=== PATIENT | female | born 1960 | race Caucasian/White ===

== ENCOUNTER 2017-04-26 13:45 | Emergency (ER) | payer OTHER, SELFPAY ==
--- NOTE | 2017-04-26 15:34 | ED PDOC ---
HPI: Female Pain Time Seen by Provider: 04/26/17 14:49 Chief Complaint (Nursing): Female Genitourinary Chief Complaint (Provider): Vaginal bleeding History Per: Patient Additional Complaint(s): 56 yo female, no PMH, PSH of partial hysterectomy, c/o vaginal bleeding on and off since yesterday with suprapubic pain. Past Medical History Vital Signs: Last Vital Signs Temp 98.2 F 04/26/17 14:29 Pulse 71 04/26/17 14:29 Resp 16 04/26/17 14:29 BP 157/76 H 04/26/17 14:29 Pulse Ox 100 04/26/17 14:29 - Medical History PMH: Denies: Chronic Kidney Disease - Surgical History Surgical History: Appendectomy Other surgeries: partial hysterectomy - Family History Family History: States: Unknown Family Hx - Immunization History Hx Tetanus Toxoid Vaccination: Yes (2 years ago) - Home Medications Home Medications: Ambulatory Orders Medication Instructions Recorded Sulfamethoxazole/Trimethopri 1 tab PO BID #14 tab 10/04/14 [Bactrim Ds 800 mg-160 mg] oxyCODONE/Acetaminophen [Percocet 1 tab PO Q6H PRN #15 tab 10/04/14 5/325 mg Tab] Phenazopyridine HCl [Pyridium] 200 mg PO TID #6 tablet 11/08/15 Sulfamethoxazole/Trimethoprim 1 tab PO BID #14 tab 11/08/15 [Bactrim DS 800 mg-160 mg] Meloxicam [Mobic] 7.5 mg PO DAILY PRN #30 tab 03/27/16 Methocarbamol [Robaxin] 500 mg PO Q8 PRN #30 tab 03/27/16 Sulfamethoxazole/Trimethoprim 1 tab PO BID 5 Days tab 04/26/17 [Bactrim DS 800 mg-160 mg] - Allergies Allergies/Adverse Reactions: Allergies Allergy/AdvReac Type Severity Reaction Status Date / Time No Known Allergies Allergy Verified 04/26/17 14:29 - Laboratory Results Result Diagrams: 04/26/17 15:40 04/26/17 15:40 - ECG O2 Sat by Pulse Oximetry: 100 Medical Decision Making Medical Decision Making: Pt declined IV Rocephin, prefers PO Disposition - Clinical Impression Clinical Impression: Vaginal bleeding, abnormal - Disposition [facility] Condition: STABLE Prescriptions: Sulfamethoxazole/Trimethoprim [Bactrim DS 800 mg-160 mg] 1 tab PO BID 5 Days tab Instructions: Dysfunctional Uterine Bleeding (ED) Forms: [employer] (Norwegian)
[2017-04-26 15:52] LABS: BASO # 0.1 K/uL (0.0-0.2); BASO % 0.8 % (0.0-2.0); EOS # 0.2 K/uL (0.0-0.7); EOS % 2.9 % (0.0-4.0); HEMOGLOBIN 12.4 g/dL (12.0-16.0); LYMPH # 1.1 K/uL (1.0-4.3); LYMPH % 17.3 % (20.0-40.0); MEAN CELL VOLUME 95.6 fl (81.0-99.0); MEAN CORPUSCULAR HEMOGLOBIN 31.6 pg (27.0-31.0); MEAN CORPUSCULAR HGB CONC 33.1 g/dL (33.0-37.0); MEAN PLATELET VOLUME 9.9 fl (7.2-11.7); MONO # 0.5 K/uL (0.0-0.8); MONO % 8.1 % (0.0-10.0); NEUT # 4.7 K/uL (1.8-7.0); NEUT % 70.9 % (50.0-75.0); RBC 3.93 Mil/uL (3.80-5.20); RED CELL DISTRIBUTION WIDTH 13.3 % (11.5-14.5); WHITE BLOOD COUNT 6.6 K/uL (4.8-10.8)
[2017-04-26 16:02] LABS: ALB/GLOB RATIO 1.5 (1.0-2.1); ALBUMIN 4.1 g/dL (3.5-5.0); ALT/SGPT 27 U/L (9-52); AST/SGOT 26 U/L (14-36); BLOOD UREA NITROGEN 21 mg/dl (7-17); CALCIUM 8.8 mg/dL (8.4-10.2); GFR AFRICAN-AMERICAN > 60; GFR NON-AFRICAN AMERICAN > 60
[2017-04-26 16:10] LABS: SQUAMOUS EPITHIAL 1 /hpf (0-5); URINE BACTERIA RARE (<OCC); URINE BILIRUBIN NEGATIVE (NEGATIVE); URINE BLOOD MODERATE (NEGATIVE); URINE CLARITY SLIGHTY-CLOUDY (Clear); URINE COLOR AMBER (YELLOW); URINE GLUCOSE (UA) NEG (Normal); URINE LEUKOCYTE ESTERASE NEG Leu/uL (Negative); URINE NITRATE POSITIVE (NEGATIVE); URINE PROTEIN NEGATIVE (NEGATIVE)
--- NOTE | 2017-04-26 17:18 | US ---
Indication: Partial hysterectomy, vaginal bleeding Comparison: None available. Technique: Real-time transabdominal pelvic ultrasound was performed. In addition a transvaginal pelvic ultrasound was necessary to better depict pelvic anatomy. Findings: Limited study. The patient is status post partial hysterectomy. Bilateral ovaries were not identified. In the region of the presumed cervical stump/vagina, there is a heterogeneous hyperechoic prominence measuring approximately 3.2 x 2.5 x 2.6 cm which demonstrates increased vascularity. Small complex fluid identified. Impression: Limited study. Status post partial hysterectomy. Bilateral ovaries are not identified. In the region of the presumed cervical stump/vagina, there is a heterogeneous hyperechoic prominence measuring approximately 3.2 x 2.5 x 2.6 cm which demonstrates increased vascularity. Malignant neoplasm must be excluded. Recommend correlation with gynecologic evaluation and pelvic exam/Pap smear. Small complex fluid identified.
[2017-04-26] MEDS ORDERED: Tmp-Smz 800 mg-160 mg DS Tab ONE (18:47)
[2017-04-26] MEDS: Tmp-Smz 800 mg-160 mg DS Tab PO STA ×2 (18:48→18:56)
[2017-04-26 19:11] VITALS: BP 128/78; PULSE 78; RESP 18; TEMP 97
[2017-04-26 20:26] VITALS: O2SAT 100
== END 2017-04-26 19:26 | disposition home or self-care (01) ==
LOC: H.ER 13:45
DX: N93.9 Abnormal uterine and vaginal bleeding, unspecified (principal)
CPT/HCPCS: 76830; 80053; 81003; 85025; 96374; 99282; J1885

== ENCOUNTER 2017-09-07 17:23 | Emergency (ER) | payer SELFPAY ==
[2017-09-07] MEDS ORDERED: Sodium Chloride 0.9% 1,000 ML IV STA (17:52)
--- NOTE | 2017-09-07 18:13 | ED PDOC ---
HPI: Fever Fever Onset Was: 09/04/17 Additional Comments: 56-YEAR-OLD female, with a past medical history of vaginal cancer, presents to ED complaining of fever for 4 days assocaited with generalized weakness and loss of appetite. Tmax today at 104. Denies any other infectious symptoms. Reports taking tylenol for fever with relief, but to due to high temperature, pt came here to be evaluated. Pt recently undergone 5 weeks of chemotherapy and radiation for vaginal cancer. Last treamtent was 2 weeks ago. PMD: Clinic. Oncologist: Dr. Gayle ([facility]) Against Medical Advice - AMA Patient Left Against Medical Advice: The patient declines admission to the hospital and wishes to leave the Emergency Department. This action is against my medical advice. This decision was made with informed refusal. The patient was told that admission to the hospital is necessary. Explanation of the reasons why were discussed. The risks of leaving were explained to the patient and include, but are not limited to, worsening of known or currently unknown conditions, permanent disability and from undiagnosed or untreated conditions. The patient has the capacity to make this informed decision and understands my explanation of the current medical problem and risks of leaving. The patient voluntarily accepts these risks and signed an AMA form documenting our conversation. The patient was given the opportunity to ask questions and reconsider. The patient was encouraged to return to the Emergency Department at any time for further care. Past Medical History Reviewed: Historical Data, Nursing Documentation, Vital Signs Vital Signs: Last Vital Signs Temp 98.1 F 09/07/17 19:41 Pulse 75 09/07/17 19:41 Resp 16 09/07/17 19:41 BP 105/50 L 09/07/17 19:41 Pulse Ox 96 09/07/17 19:41 - Medical History PMH: Malignancy (vaginal) Other PMH: vaginal cancer - Surgical History Surgical History: Appendectomy Other surgeries: hysterectomy, portal catheter right chest - Family History Family History: States: Unknown Family Hx - Social History Current smoker - smoking cessation education provided: Yes Alcohol: Occasional - Immunization History Hx Tetanus Toxoid Vaccination: Yes (2 years ago) - Home Medications Home Medications: Ambulatory Orders Medication Instructions Recorded Sulfamethoxazole/Trimethopri 1 tab PO BID #14 tab 10/04/14 [Bactrim Ds 800 mg-160 mg] oxyCODONE/Acetaminophen [Percocet 1 tab PO Q6H PRN #15 tab 10/04/14 5/325 mg Tab] Phenazopyridine HCl [Pyridium] 200 mg PO TID #6 tablet 11/08/15 Sulfamethoxazole/Trimethoprim 1 tab PO BID #14 tab 11/08/15 [Bactrim DS 800 mg-160 mg] Meloxicam [Mobic] 7.5 mg PO DAILY PRN #30 tab 03/27/16 Methocarbamol [Robaxin] 500 mg PO Q8 PRN #30 tab 03/27/16 Sulfamethoxazole/Trimethoprim 1 tab PO BID 5 Days tab 04/26/17 [Bactrim DS 800 mg-160 mg] - Allergies Allergies/Adverse Reactions: Allergies Allergy/AdvReac Type Severity Reaction Status Date / Time No Known Allergies Allergy Verified 09/07/17 17:30 Review of Systems ROS Statement: Except As Marked, All Systems Reviewed And Found Negative (and as per HPI) Constitutional: Positive for: Fever, Chills, Weakness Cardiovascular: Positive for: Light Headedness Genitourinary Female: Negative for: Dysuria, Hematuria, Vaginal Discharge, Vaginal Bleeding, Pelvic Pain Physical Exam - Reviewed Nursing Documentation Reviewed: Yes Vital Signs Reviewed: Yes - Physical Exam Appears: Positive for: No Acute Distress. Negative for: Well ((+): tired appearing) Head Exam: Positive for: ATRAUMATIC, NORMOCEPHALIC Skin: Positive for: Warm, Dry, Pallor (Mild) Eye Exam: Positive for: EOMI, PERRL ENT: Positive for: Pharynx Is (Clear), Other (tachy mucous membranes) Neck: Positive for: Painless ROM, Supple Cardiovascular/Chest: Positive for: Regular Rate, Rhythm, Chest Non Tender. Negative for: Murmur Respiratory: Positive for: Normal Breath Sounds. Negative for: Wheezing, Respiratory Distress Gastrointestinal/Abdominal: Positive for: Bowel Sounds, Soft. Negative for: Tenderness, Mass, Distended, Guarding Back: Positive for: Normal Inspection. Negative for: Decreased ROM Extremity: Positive for: Normal ROM. Negative for: Deformity Lymphatic: Negative for: Adenopathy Neurologic/Psych: Positive for: Alert. Negative for: Motor/Sensory Deficits - Laboratory Results Result Diagrams: 09/07/17 18:00 09/07/17 18:00 - ECG O2 Sat by Pulse Oximetry: 99 (RA) Pulse Ox Interpretation: Normal Medical Decision Making Medical Decision Making: Impression(s): Febrile illness with recent cancer therapy Differentials include, not limited to: viral illness, sepsis, dehydration, neutropenic fever, UTI, bacteremia, pneumonia Plan: - Venous Blood Gas Serum - cmp - Lipase - magnesium - phosphorous - ED Urine Dipstick - cbc - partial thromboplastin time - prothrombin time - CXR - Blood Culture - Urine Culture - Sodium Chloride 0.9% 1,000 ml IV 1,000 mls/hr - Infectious mononucleosis - Rapid Strep Group A Antigen - UA - EKG - Troponin I - Throat Culture Time: 19:48 - Labs demonstrate marked anemia and UTI. Given systemic symptoms, findings c/w pyelonephritis. - Rocephin 1 gm Sodium Chloride 0.9% 100 ml IV STAT - Crossmatch [Packed Cells Leukoreduced] - Discussed with patient findings and plan of care, including admission. Pt declines admission at this time. DW pt risks/benefits. She will leave A after IV rocephin and transfusion. 230 Transfusion not yet started by patient wants to leave now. AMA signed. Reports that she will return tomorrow at around 10am. Scribe Attestation: Documented by Alton Iverson, acting as a scribe for Margarita Troy MD. Provider Scribe Attestation: All medical record entries made by the Scribe were at my direction and personally dictated by me. I have reviewed the chart and agree that the record accurately reflects my personal performance of the history, physical exam, medical decision making, and the department course for this patient. I have also personally directed, reviewed, and agree with the discharge instructions and disposition. Disposition - Clinical Impression Clinical Impression: Anemia, Pyelonephritis Counseled Patient/Family Regarding: Studies Performed, Diagnosis - Disposition Disposition Time: 21:00 Condition: Additional Instructions: RETURN TO HOSPITAL IMMEDIATELY FOR FURTHER MANAGEMENT Instructions: Leaving Against Medical Advice
[2017-09-07 18:38] LABS: VENOUS BLOOD GAS BASE EXCESS 3.7 mmol/L (0.0-2.0); VENOUS BLOOD GAS PCO2 38 mmHg (40-60); VENOUS BLOOD GAS PO2 28 mm/Hg (30-55); VENOUS BLOOD PH 7.47 (7.32-7.43)
[2017-09-07 19:21] LABS: BASO % 0.4 % (0.0-2.0); EOS % 0.1 % (0.0-4.0); HEMOGLOBIN 7.2 g/dL (12.0-16.0); LYMPH # 0.6 K/uL (1.0-4.3); LYMPH % 7.1 % (20.0-40.0); MEAN CELL VOLUME 96.9 fl (81.0-99.0); MEAN CORPUSCULAR HEMOGLOBIN 32.8 pg (27.0-31.0); MEAN CORPUSCULAR HGB CONC 33.9 g/dL (33.0-37.0); MEAN PLATELET VOLUME 8.2 fl (7.2-11.7); MONO # 1.1 K/uL (0.0-0.8); MONO % 12.5 % (0.0-10.0); NEUT # 6.9 K/uL (1.8-7.0); NEUT % 79.9 % (50.0-75.0); PLATELET COUNT 258 K/uL (130-400); RBC 2.19 Mil/uL (3.80-5.20); RED CELL DISTRIBUTION WIDTH 14.6 % (11.5-14.5); WHITE BLOOD COUNT 8.7 K/uL (4.8-10.8)
[2017-09-07 19:29] LABS: URINE BACTERIA OCC (<OCC); URINE BILIRUBIN NEGATIVE (NEGATIVE); URINE BLOOD NEGATIVE (NEGATIVE); URINE CLARITY TURBID (Clear); URINE COLOR YELLOW (YELLOW); URINE GLUCOSE (UA) 50 mg/dL (Normal); URINE HYALINE CAST >20 /hpf (0-2); URINE LEUKOCYTE ESTERASE LARGE Leu/uL (Negative); URINE PROTEIN 100 mg/dL (NEGATIVE); URINE UROBILINOGEN 0.2-1.0 mg/dL (0.2-1.0); WBC CLUMPS MANY /hpf
[2017-09-07 19:31] LABS: ALB/GLOB RATIO 0.9 (1.0-2.1); ALBUMIN 3.4 g/dL (3.5-5.0); ALT/SGPT 41 U/L (9-52); AST/SGOT 29 U/L (14-36); BLOOD UREA NITROGEN 11 mg/dl (7-17); CALCIUM 7.9 mg/dL (8.4-10.2); GFR AFRICAN-AMERICAN > 60; GFR NON-AFRICAN AMERICAN > 60; LIPASE 69 U/L (23-300)
[2017-09-07 19:43] LABS: INR 1.1 (0.9-1.2); PARTIAL THROMBOPLASTIN TIME 28.8 Seconds (25.6-37.1); PROTHROMBIN TIME 12.6 Seconds (9.8-13.1)
[2017-09-07 19:50] VITALS: TEMP 98.1
[2017-09-07 21:15] LABS: BASOPHIL 1 % (0-2); LYMPHOCYTE 8 % (20-50); MONOCYTE 12 % (0-10); NEUTROPHIL 79 % (42-75); PLATELET ESTIMATE NORMAL (NORMAL); TOTAL CELLS COUNTED 100
[2017-09-07 21:16] LABS: HYPOCHROMIC SLIGHT
[2017-09-07 21:38] VITALS: O2SAT 99
[2017-09-07] MEDS ORDERED: cefTRIAXone (Rocephin) 1 gm Inj ONE (21:44)
[2017-09-08 01:22] VITALS: BP 107/46; PULSE 78; RESP 17
--- NOTE | 2017-09-08 08:39 | RAD ---
HISTORY: fever COMPARISON: Chest radiograph dated 06/16/2012. TECHNIQUE: Chest PA and lateral FINDINGS: LUNGS: No active pulmonary disease. PLEURA: No significant pleural effusion identified. No pneumothorax apparent. CARDIOVASCULAR: Atherosclerotic aortic calcifications. Cardiomediastinal silhouette within normal. OSSEOUS STRUCTURES: Unchanged. VISUALIZED UPPER ABDOMEN: Normal. OTHER FINDINGS: Right internal jugular access chest port with catheter tip in the SVC. IMPRESSION: No active disease.
--- NOTE | 2017-09-09 12:15 | CARD ---
APPROVED REPORT EKG Measurement Heart [id number] <Conclusion> Normal sinus rhythm Possible Left atrial enlargement Borderline ECG
== END 2017-09-07 23:29 | disposition left against medical advice (07) ==
LOC: H.ER 17:23
DX: N12 Tubulo-interstitial nephritis, not specified as acute or chronic (principal); D64.9 Anemia, unspecified; F17.200 Nicotine dependence, unspecified, uncomplicated; Z90.710 Acquired absence of both cervix and uterus; Z85.89 Personal history of malignant neoplasm of other organs and systems; Z51.11 Encounter for antineoplastic chemotherapy
CPT/HCPCS: 71046; 80053; 81003; 82803; 83690; 83735; 84100; 84484; 85025; 85610; 85730; 86308; 86850; 86900; 86920; 86921; 86922; 87040; 87070; 87086; 87430; 93005; 96360; 99285; J0696; J7030

== ENCOUNTER 2017-09-08 10:28 | Inpatient (IN) | payer MEDICAID, SELFPAY ==
[2017-09-08 10:33] VITALS: BMI 18.2
[2017-09-08] MEDS ORDERED: Sodium Chloride 0.9% 1,000 ML IV STA (11:03)
--- NOTE | 2017-09-08 11:07 | ED PDOC ---
Syncope/Near Syncope/Dizziness Time Seen by Provider: 09/08/17 10:51 Chief Complaint (Nursing): Weakness/Neurological Deficit History Per: Patient Onset/Duration Of Symptoms: Days (2) Current Symptoms Are (Timing): Still Present Activity At Onset Of Symptoms: Walking Seizure Or Post-ictal Symptoms: None Fall Associated With With Symptoms: No Severity: Moderate Additional Complaint(s): Generalized waekness assoc with fever to 104 x 2 days. Pt is s/p chemo and radiation for vaginal Ca, last dose 2 weeks ago. Seen in ED yesterday and started on IV Rocephin. Could not wait for transfusion due to need to take care of pets at home and signed AMA last night. Returns today for transfusion and tx of urinary tract infection. Past Medical History Vital Signs: Last Vital Signs Temp 98.8 F 09/08/17 10:33 Pulse 84 09/08/17 10:33 Resp 16 09/08/17 10:33 BP 117/68 09/08/17 10:33 Pulse Ox 98 09/08/17 10:53 - Medical History PMH: Malignancy (vaginal) Denies: Chronic Kidney Disease - Surgical History Surgical History: Appendectomy - Family History Family History: States: Unknown Family Hx - Immunization History Hx Tetanus Toxoid Vaccination: Yes (2 years ago) - Home Medications Home Medications: Ambulatory Orders Medication Instructions Recorded Sulfamethoxazole/Trimethopri 1 tab PO BID #14 tab 10/04/14 [Bactrim Ds 800 mg-160 mg] oxyCODONE/Acetaminophen [Percocet 1 tab PO Q6H PRN #15 tab 10/04/14 5/325 mg Tab] Phenazopyridine HCl [Pyridium] 200 mg PO TID #6 tablet 11/08/15 Sulfamethoxazole/Trimethoprim 1 tab PO BID #14 tab 11/08/15 [Bactrim DS 800 mg-160 mg] Meloxicam [Mobic] 7.5 mg PO DAILY PRN #30 tab 03/27/16 Methocarbamol [Robaxin] 500 mg PO Q8 PRN #30 tab 03/27/16 Sulfamethoxazole/Trimethoprim 1 tab PO BID 5 Days tab 04/26/17 [Bactrim DS 800 mg-160 mg] - Allergies Allergies/Adverse Reactions: Allergies Allergy/AdvReac Type Severity Reaction Status Date / Time No Known Allergies Allergy Verified 09/08/17 10:53 Review of Systems ROS Statement: Except As Marked, All Systems Reviewed And Found Negative Constitutional: Positive for: Fever, Weakness Physical Exam - Reviewed Nursing Documentation Reviewed: Yes Vital Signs Reviewed: Yes - Physical Exam Appears: Positive for: Non-toxic, No Acute Distress Head Exam: Positive for: ATRAUMATIC, NORMAL INSPECTION, NORMOCEPHALIC Skin: Positive for: Normal Color, Warm, DRY Eye Exam: Positive for: EOMI, Normal appearance, PERRL ENT: Positive for: Normal ENT Inspection Neck: Positive for: Normal, Painless ROM Cardiovascular/Chest: Positive for: Regular Rate, Rhythm Respiratory: Positive for: CNT, Normal Breath Sounds Gastrointestinal/Abdominal: Positive for: Soft. Negative for: Tenderness Back: Positive for: Normal Inspection. Negative for: L CVA Tenderness, R CVA Tenderness Extremity: Positive for: Normal ROM Neurologic/Psych: Positive for: Alert, Oriented - ECG O2 Sat by Pulse Oximetry: 98 Disposition - Clinical Impression Clinical Impression: Anemia, Urinary tract infection - Patient ED Disposition Is Patient to be Admitted: Yes - Disposition Disposition Time: 11:14 Condition: FAIR Forms: [facility] (Maltese) - Pt Status Changed To: Hospital Disposition Of: Inpatient - Admit Certification Admit to Inpatient:: After my assessment, the patient will require hospitalization for at least two midnights. This is because of the severity of symptoms shown, intensity of services needed, and/or the medical risk in this patient being treated as an outpatient. - POA Present On Arrival: None
[2017-09-08 11:57] LABS: BASO % 0.2 % (0.0-2.0); EOS % 0.1 % (0.0-4.0); HEMOGLOBIN 7.6 g/dL (12.0-16.0); LYMPH # 0.5 K/uL (1.0-4.3); LYMPH % 7.1 % (20.0-40.0); MEAN CELL VOLUME 95.4 fl (81.0-99.0); MEAN CORPUSCULAR HEMOGLOBIN 32.4 pg (27.0-31.0); MONO # 0.8 K/uL (0.0-0.8); MONO % 12.5 % (0.0-10.0); NEUT # 5.2 K/uL (1.8-7.0); NEUT % 80.1 % (50.0-75.0); RBC 2.35 Mil/uL (3.80-5.20); RED CELL DISTRIBUTION WIDTH 14.6 % (11.5-14.5); WHITE BLOOD COUNT 6.5 K/uL (4.8-10.8)
[2017-09-08 12:08] LABS: VENOUS BLOOD GAS BASE EXCESS 3.2 mmol/L (0.0-2.0); VENOUS BLOOD GAS PCO2 35 mmHg (40-60); VENOUS BLOOD GAS PO2 67 mm/Hg (30-55); VENOUS BLOOD PH 7.49 (7.32-7.43)
[2017-09-08 12:32] LABS: ALB/GLOB RATIO 0.8 (1.0-2.1); ALBUMIN 3.2 g/dL (3.5-5.0); ALT/SGPT 45 U/L (9-52); AST/SGOT 26 U/L (14-36); BLOOD UREA NITROGEN 13 mg/dl (7-17); CALCIUM 8.2 mg/dL (8.4-10.2); GFR AFRICAN-AMERICAN > 60; GFR NON-AFRICAN AMERICAN > 60
--- NOTE | 2017-09-08 15:41 | CP.PCM.HP ---
History of Present Illness - History of Present Illness History of Present Illness: 56 year old female with history of VAIN III currently underoging chemo/ radiation presented with complaints fever, fatigue, dysuria for past 1 week. She received her last treatment 2 weeks ago. Fatigue and fevers prompted ED visit yesterday but she was unable to stay so she signed out AMA. She returns today for blood transfusion, does not want to stay overnight, but says she will just leave in the morning. Heme/Onc: Dr. Gayle at [facility]. She has been undergoing treatment since June 2017. Originally diagnosed in April 2017. For all previous treatments she was able to work, and denies having any side effects from the treatment. PMD: none, last seen at [facility] in May 2017. 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 Medications: chemo rx Allergies: NKDA Present on Admission - Present on Admission Any Indicators Present on Admission: No Review of Systems - Review of Systems All systems: reviewed and no additional remarkable complaints except - Constitutional Constitutional: Chills, Fatigue, Fever, Weakness - Cardiovascular Cardiovascular: Dyspnea (not currently, but did have within past week). absent : Chest Pain, Chest Pain at Rest, Diaphoresis, Lightheadedness, Palpitations - Respiratory Respiratory: absent: Cough - Gastrointestinal Gastrointestinal: Diarrhea (for past month). absent: Abdominal Pain, Change in Bowel Habits, Hematochezia, Melena - Genitourinary Genitourinary: Dysuria. absent: Difficulty Urinating, Flank Pain, Hematuria - Neurological Neurological: absent: Confusion, Dizziness, Syncope Past Patient History - Past Social History Smoking Status: Light Smoker < 10 Cigarettes Daily - CARDIAC Hx Cardiac Disorders: No - PULMONARY Hx Respiratory Disorders: No - NEUROLOGICAL Hx Neurological Disorder: No - HEENT Hx HEENT Problems: No - RENAL Hx Chronic Kidney Disease: No - ENDOCRINE/METABOLIC Hx Endocrine Disorders: No - HEMATOLOGICAL/ONCOLOGICAL Hx Blood Disorders: No - PSYCHIATRIC Hx Substance Use: No - SURGICAL HISTORY Hx Appendectomy: Yes - ANESTHESIA Hx Anesthesia: Yes Meds Allergies/Adverse Reactions: Allergies Allergy/AdvReac Type Severity Reaction Status Date / Time No Known Allergies Allergy Verified 09/08/17 10:53 Physical Exam - Constitutional Appears: No Acute Distress, Other (tired) - Head Exam Head Exam: ATRAUMATIC, NORMAL INSPECTION, NORMOCEPHALIC - Eye Exam Additional comments: conjunctival pallor, 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 absent: Chest Wall Tenderness, Rhonchi, Wheezes, Respiratory Distress Additional comments: PORT on right chest, blood transfusion infusing - Cardiovascular Exam Cardiovascular Exam: REGULAR RHYTHM, RRR. absent: Bradycardia, Tachycardia, Diastolic murmur, Systolic Murmur - GI/Abdominal Exam GI & Abdominal Exam: Soft. absent: Diminished Bowel Sounds, Distended, Tenderness - Extremities Exam Extremities exam: Positive for: normal inspection. Negative for: calf tenderness - Back Exam Back exam: absent: CVA tenderness (L), CVA tenderness (R) - Neurological Exam Neurological exam: Alert, CN II-XII Intact - Skin Skin Exam: Dry, Pallor Results - Vital Signs Recent Vital Signs: Last Vital Signs Temp 98.2 F 09/08/17 15:09 Pulse 80 09/08/17 15:09 Resp 18 09/08/17 15:09 BP 127/72 09/08/17 15:09 Pulse Ox 99 09/08/17 15:09 - Labs Result Diagrams: 09/08/17 11:40 09/08/17 12:10 Labs: Laboratory Results - last 24 hr 09/08/17 09/08/17 09/08/17 11:03 11:40 12:00 WBC 6.5 RBC 2.35 L Hgb 7.6 L Hct 22.5 L MCV 95.4 MCH 32.4 H MCHC 34.0 RDW 14.6 H Plt Count 254 MPV 8.0 Neut % (Auto) 80.1 H Lymph % (Auto) 7.1 L [place] % (Auto) 12.5 H Eos % (Auto) 0.1 Baso % (Auto) 0.2 Neut # (Auto) 5.2 Lymph # (Auto) 0.5 L [place] # (Auto) 0.8 Eos # (Auto) 0.0 Baso # (Auto) 0.0 pO2 67 H VBG pH 7.49 H VBG pCO2 35 L VBG HCO3 27.4 VBG Total CO2 27.8 VBG O2 Sat (Calc) 97.8 H VBG Base Excess 3.2 H VBG Potassium 4.0 Sodium 135.0 Chloride 105.0 Glucose 124 H Lactate 0.8 FiO2 21.0 Potassium Carbon Dioxide Anion Gap BUN Creatinine Est GFR ( Amer) Est GFR (Non-Af Amer) Random Glucose Calcium Total Bilirubin AST ALT Alkaline Phosphatase Total Protein Albumin Globulin Albumin/Globulin Ratio Venous Blood Potassium 4.0 Blood Type A POSITIVE Antibody Screen Negative Crossmatch See Detail BBK History Checked Patient has bt 09/08/17 12:10 WBC RBC Hgb Hct MCV MCH MCHC RDW Plt Count MPV Neut % (Auto) Lymph % (Auto) [place] % (Auto) Eos % (Auto) Baso % (Auto) Neut # (Auto) Lymph # (Auto) [place] # (Auto) Eos # (Auto) Baso # (Auto) pO2 VBG pH VBG pCO2 VBG HCO3 VBG Total CO2 VBG O2 Sat (Calc) VBG Base Excess VBG Potassium Sodium 136 Chloride 102 Glucose Lactate FiO2 Potassium 4.1 Carbon Dioxide 23 Anion Gap 15 BUN 13 Creatinine 0.8 Est GFR ( Amer) > 60 Est GFR (Non-Af Amer) > 60 Random Glucose 121 H Calcium 8.2 L Total Bilirubin 0.4 AST 26 ALT 45 Alkaline Phosphatase 73 Total Protein 7.1 Albumin 3.2 L Globulin 3.8 Albumin/Globulin Ratio 0.8 L Venous Blood Potassium Blood Type Antibody Screen Crossmatch BBK History Checked Assessment & Plan - Assessment and Plan (Free Text) Assessment: 56 year old female with VAIN III currently undergoing rx with chemo/radiation admitted for Anemia and UTI. Patient is hemodynamically stable, afebrile. Given Rocephin for UTI. Blood and urine cx done in ED Anemia -Transfuse 2 units, repeat cbc -heme/onc consult. pt sees Dr. Gayle at [facility] -FOBT UTI -UA -f/u urine culture -Given rocephin in ED -Start Levaquin 750 mg in AM Prophylaxis DVT: SCDs for now, pt with anemia unclear if 2/2 to chemotherapy or possibly secondary to microscopic blood loss in stool. GI: not indicated
[2017-09-08 16:28] LABS: RENAL EPITHELIAL 2 /hpf (0-3); URINE BACTERIA FEW (<OCC); URINE BILIRUBIN NEGATIVE (NEGATIVE); URINE BLOOD NEGATIVE (NEGATIVE); URINE CLARITY TURBID (Clear); URINE COLOR AMBER (YELLOW); URINE GLUCOSE (UA) NEG (Normal); URINE LEUKOCYTE ESTERASE LARGE Leu/uL (Negative); URINE PROTEIN 100 mg/dL (NEGATIVE); URINE UROBILINOGEN 0.2-1.0 mg/dL (0.2-1.0); WBC CLUMPS MANY /hpf
[2017-09-08] MEDS ORDERED: cefTRIAXone (Rocephin) 1 gm Inj ONE (22:08)
[2017-09-09 00:35] VITALS: TEMP 98.1; O2SAT 97
[2017-09-09 04:19] LABS: HEMOGLOBIN 8.9 g/dL (12.0-16.0); MEAN CORPUSCULAR HEMOGLOBIN 30.9 pg (27.0-31.0); MEAN CORPUSCULAR HGB CONC 34.3 g/dL (33.0-37.0); RBC 2.87 Mil/uL (3.80-5.20); RED CELL DISTRIBUTION WIDTH 17.2 % (11.5-14.5); WHITE BLOOD COUNT 6.3 K/uL (4.8-10.8)
[2017-09-09 07:55] VITALS: BP 125/61; PULSE 79; RESP 20
[2017-09-09] MEDS ORDERED: levoFLOXacin 750 mg in D5W 750 MG/150 ML BAG IVPB SCH (09:00)
[2017-09-09] MEDS ORDERED: levoFLOXacin 750 mg in D5W 150 ML BAG IVPB SCH (09:00)
--- NOTE | 2017-09-09 09:39 | CP.PCM.CON ---
History of Present Illness - History of Present Illness History of Present Illness: This is a 56 yrs old female who was on chemo+ radiation which finished 2 weeks ago . She was diagnosed to have a cervical cancer for which she was on treatment with Dr You at [facility]. She had a syncopal episode and came to the ER and admission was suggested, but she signed out AMA.. She came back and was admitted as observation for transfusion of 2 units of packed cells. She was also found to have UTI and will receive 1 dose of antibioticsprior to discharge. Past Patient History - Past Medical History & Family History Past Medical History?: Yes - Past Social History Smoking Status: Current Some Days Smoker - CARDIAC Hx Cardiac Disorders: No - PULMONARY Hx Respiratory Disorders: No - NEUROLOGICAL Hx Neurological Disorder: No - HEENT Hx HEENT Problems: No - RENAL Hx Chronic Kidney Disease: No - ENDOCRINE/METABOLIC Hx Endocrine Disorders: No - HEMATOLOGICAL/ONCOLOGICAL Hx Blood Disorders: No - INTEGUMENTARY Hx Dermatological Problems: No - MUSCULOSKELETAL/RHEUMATOLOGICAL Hx Falls: No - GASTROINTESTINAL Hx Diarrhea: Yes (chemo) - GENITOURINARY/GYNECOLOGICAL Hx Genitourinary Disorders: No - PSYCHIATRIC Hx Substance Use: No - SURGICAL HISTORY Hx Appendectomy: Yes - ANESTHESIA Hx Anesthesia: Yes Hx Anesthesia Reactions: No Hx Malignant Hyperthermia: No Has any member of the family had a problem w/ anesthesia?: No Meds Allergies/Adverse Reactions: Allergies Allergy/AdvReac Type Severity Reaction Status Date / Time No Known Allergies Allergy Verified 09/08/17 10:53 - Medications Medications: Current Medications Levofloxacin/Dextrose (Levaquin 750mg) 750 mg in 150 mls @ 100 mls/hr IVPB DAILY DULCE Last Admin: 09/09/17 08:43 Dose: 100 mls/hr Physical Exam - Additional Findings Additional findings: Physical exam; Alert,,well oriented in no acute distress neck; supple, no adenopathy Chest; Clear, no rales or rhonchi Heart; RSR, no murmur Abd; Soft, no mass, no h/s megaly Results - Vital Signs Recent Vital Signs: Last Vital Signs Temp 98.1 F 09/09/17 07:54 Pulse 79 09/09/17 07:54 Resp 20 09/09/17 07:54 BP 125/61 09/09/17 07:54 Pulse Ox 97 06/11/18 07:54 - Labs Result Diagrams: 09/09/17 04:10 09/08/17 12:10 Labs: Laboratory Results - last 24 hr 09/08/17 09/08/17 09/08/17 11:03 11:40 12:00 WBC 6.5 RBC 2.35 L Hgb 7.6 L Hct 22.5 L MCV 95.4 MCH 32.4 H MCHC 34.0 RDW 14.6 H Plt Count 254 MPV 8.0 Neut % (Auto) 80.1 H Lymph % (Auto) 7.1 L [place] % (Auto) 12.5 H Eos % (Auto) 0.1 Baso % (Auto) 0.2 Neut # (Auto) 5.2 Lymph # (Auto) 0.5 L [place] # (Auto) 0.8 Eos # (Auto) 0.0 Baso # (Auto) 0.0 pO2 67 H VBG pH 7.49 H VBG pCO2 35 L VBG HCO3 27.4 VBG Total CO2 27.8 VBG O2 Sat (Calc) 97.8 H VBG Base Excess 3.2 H VBG Potassium 4.0 Sodium 135.0 Chloride 105.0 Glucose 124 H Lactate 0.8 FiO2 21.0 Potassium Carbon Dioxide Anion Gap BUN Creatinine Est GFR ( Amer) Est GFR (Non-Af Amer) Random Glucose Calcium Total Bilirubin AST ALT Alkaline Phosphatase Total Protein Albumin Globulin Albumin/Globulin Ratio Venous Blood Potassium 4.0 Urine Color Urine Clarity Urine pH Ur Specific [place] Urine Protein Urine Glucose (UA) Urine Ketones Urine Blood Urine Nitrate Urine Bilirubin Urine Urobilinogen Ur Leukocyte Esterase Urine RBC (Auto) Urine WBC Clumps (Auto) Urine Microscopic WBC Ur Renal Epithelial Cell Urine Bacteria Blood Type A POSITIVE Antibody Screen Negative Crossmatch See Detail BBK History Checked Patient has bt 09/08/17 09/08/17 09/09/17 12:10 16:06 04:10 WBC 6.3 RBC 2.87 L Hgb 8.9 L Hct 25.8 L MCV 90.0 D MCH 30.9 MCHC 34.3 RDW 17.2 H Plt Count 270 MPV Neut % (Auto) Lymph % (Auto) [place] % (Auto) Eos % (Auto) Baso % (Auto) Neut # (Auto) Lymph # (Auto) [place] # (Auto) Eos # (Auto) Baso # (Auto) pO2 VBG pH VBG pCO2 VBG HCO3 VBG Total CO2 VBG O2 Sat (Calc) VBG Base Excess VBG Potassium Sodium 136 Chloride 102 Glucose Lactate FiO2 Potassium 4.1 Carbon Dioxide 23 Anion Gap 15 BUN 13 Creatinine 0.8 Est GFR ( Amer) > 60 Est GFR (Non-Af Amer) > 60 Random Glucose 121 H Calcium 8.2 L Total Bilirubin 0.4 AST 26 ALT 45 Alkaline Phosphatase 73 Total Protein 7.1 Albumin 3.2 L Globulin 3.8 Albumin/Globulin Ratio 0.8 L Venous Blood Potassium Urine Color Deisy Urine Clarity Turbid Urine pH 6.0 Ur Specific [place] 1.020 Urine Protein 100 Urine Glucose (UA) Neg Urine Ketones Negative Urine Blood Negative Urine Nitrate Negative Urine Bilirubin Negative Urine Urobilinogen 0.2-1.0 Ur Leukocyte Esterase Large Urine RBC (Auto) 33 H Urine WBC Clumps (Auto) Many H Urine Microscopic WBC 2724 H Ur Renal Epithelial Cell 2 Urine Bacteria Few H Blood Type Antibody Screen Crossmatch BBK History Checked Assessment & Plan - Assessment and Plan (Free Text) Assessment: Impression, Anemia, UTI. Cervical cancer. Plan: Plan; Agree with the transfusion, will ck the post transfusion cbc. She is very keen to leave right now. - Date & Time Date: 09/09/17 Time: 09:51
--- NOTE | 2017-09-09 10:01 | CP.PCM.DIS ---
Provider - Provider Date of Admission: 09/08/17 11:13 Attending physician: Betsy Elizondo MD Consults: Hemo/Onc: Dr. Dwyer Time Spent in preparation of Discharge (in minutes): 30 Hospital Course - Lab Results Lab Results: Most Recent Lab Values WBC 6.3 K/uL (4.8-10.8) 09/09/17 04:10 RBC 2.87 Mil/uL (3.80-5.20) L 09/09/17 04:10 Hgb 8.9 g/dL (12.0-16.0) L 09/09/17 04:10 Hct 25.8 % (34.0-47.0) L 09/09/17 04:10 MCV 90.0 fl (81.0-99.0) D 09/09/17 04:10 MCH 30.9 pg (27.0-31.0) 09/09/17 04:10 MCHC 34.3 g/dL (33.0-37.0) 09/09/17 04:10 RDW 17.2 % (11.5-14.5) H 09/09/17 04:10 Plt Count 270 K/uL (130-400) 09/09/17 04:10 MPV 8.0 fl (7.2-11.7) 09/08/17 11:40 Neut % (Auto) 80.1 % (50.0-75.0) H 09/08/17 11:40 Lymph % (Auto) 7.1 % (20.0-40.0) L 09/08/17 11:40 [place] % (Auto) 12.5 % (0.0-10.0) H 09/08/17 11:40 Eos % (Auto) 0.1 % (0.0-4.0) 09/08/17 11:40 Baso % (Auto) 0.2 % (0.0-2.0) 09/08/17 11:40 Neut # (Auto) 5.2 K/uL (1.8-7.0) 09/08/17 11:40 Lymph # (Auto) 0.5 K/uL (1.0-4.3) L 09/08/17 11:40 [place] # (Auto) 0.8 K/uL (0.0-0.8) 09/08/17 11:40 Eos # (Auto) 0.0 K/uL (0.0-0.7) 09/08/17 11:40 Baso # (Auto) 0.0 K/uL (0.0-0.2) 09/08/17 11:40 pO2 67 mm/Hg (30-55) H 09/08/17 11:03 VBG pH 7.49 (7.32-7.43) H 09/08/17 11:03 VBG pCO2 35 mmHg (40-60) L 09/08/17 11:03 VBG HCO3 27.4 mmol/L 09/08/17 11:03 VBG Total CO2 27.8 mmol/L (22-28) 09/08/17 11:03 VBG O2 Sat (Calc) 97.8 % (40-65) H 09/08/17 11:03 VBG Base Excess 3.2 mmol/L (0.0-2.0) H 09/08/17 11:03 VBG Potassium 4.0 mmol/L (3.6-5.2) 09/08/17 11:03 Sodium 135.0 mmol/L (132-148) 09/08/17 11:03 Chloride 105.0 mmol/L (98-107) 09/08/17 11:03 Glucose 124 mg/dL (65-105) H 09/08/17 11:03 Lactate 0.8 mmol/L (0.7-2.1) 09/08/17 11:03 FiO2 21.0 % 09/08/17 11:03 Sodium 136 mmol/l (132-148) 09/08/17 12:10 Potassium 4.1 MMOL/L (3.6-5.0) 09/08/17 12:10 Chloride 102 mmol/L (98-107) 09/08/17 12:10 Carbon Dioxide 23 mmol/L (22-30) 09/08/17 12:10 Anion Gap 15 (10-20) 09/08/17 12:10 BUN 13 mg/dl (7-17) 09/08/17 12:10 Creatinine 0.8 mg/dl (0.7-1.2) 09/08/17 12:10 Est GFR ( Amer) > 60 09/08/17 12:10 Est GFR (Non-Af Amer) > 60 09/08/17 12:10 Random Glucose 121 mg/dL (65-105) H 09/08/17 12:10 Calcium 8.2 mg/dL (8.4-10.2) L 09/08/17 12:10 Total Bilirubin 0.4 mg/dl (0.2-1.3) 09/08/17 12:10 AST 26 U/L (14-36) 09/08/17 12:10 ALT 45 U/L (9-52) 09/08/17 12:10 Alkaline Phosphatase 73 U/L (38-126) 09/08/17 12:10 Total Protein 7.1 G/DL (6.3-8.2) 09/08/17 12:10 Albumin 3.2 g/dL (3.5-5.0) L 09/08/17 12:10 Globulin 3.8 gm/dL (2.2-3.9) 09/08/17 12:10 Albumin/Globulin Ratio 0.8 (1.0-2.1) L 09/08/17 12:10 Venous Blood Potassium 4.0 mmol/L (3.6-5.2) 09/08/17 11:03 Urine Color [place] (YELLOW) 09/08/17 16:06 Urine Clarity Turbid (Clear) 09/08/17 16:06 Urine pH 6.0 (5.0-8.0) 09/08/17 16:06 Ur Specific [place] 1.020 (1.003-1.030) 09/08/17 16:06 Urine Protein 100 mg/dL (NEGATIVE) 09/08/17 16:06 Urine Glucose (UA) Neg mg/dL (Normal) 09/08/17 16:06 Urine Ketones Negative mg/dL (NEGATIVE) 09/08/17 16:06 Urine Blood Negative (NEGATIVE) 09/08/17 16:06 Urine Nitrate Negative (NEGATIVE) 09/08/17 16:06 Urine Bilirubin Negative (NEGATIVE) 09/08/17 16:06 Urine Urobilinogen 0.2-1.0 mg/dL (0.2-1.0) 09/08/17 16:06 Ur Leukocyte Esterase Large [place]/uL (Negative) 09/08/17 16:06 Urine RBC (Auto) 33 /hpf (0-3) H 09/08/17 16:06 Urine WBC Clumps (Auto) Many /hpf (NONE) H 09/08/17 16:06 Urine Microscopic WBC 2724 /hpf (0-5) H 09/08/17 16:06 Ur Renal Epithelial Cell 2 /hpf (0-3) 09/08/17 16:06 Urine Bacteria Few (<OCC) H 09/08/17 16:06 Blood Type A POSITIVE 09/08/17 12:00 Antibody Screen Negative 09/08/17 12:00 Crossmatch See Detail 09/08/17 12:00 BBK History Checked Patient has bt 09/08/17 12:00 - Hospital Course Hospital Course: 56 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 Pt was transfused with 2 units of PRBC, hb/hct 7.6/22.5 to 8.9/25.8 post transfusion. UA was sig for RBC , WBC, bacteria and Leuk pos and urine culture no growth. Pt d/c to home with follow up in [facility] 09/11/17, follow up in [facility] Dr. You (radio), Dr. Lopes (hem/onc) for radio and chemotherapy. D/C Meds: Levofloxacin 500mg PO daily x 5 days Pyridium 200mg PO daily x 2 days Discharge Exam - Head Exam Head Exam: ATRAUMATIC, NORMAL INSPECTION, NORMOCEPHALIC - Eye Exam Eye Exam: EOMI, Normal appearance - Respiratory Exam Respiratory Exam: Clear to PA & Lateral, UNREMARKABLE. absent: Rhonchi, Wheezes - Cardiovascular Exam Cardiovascular Exam: REGULAR RHYTHM, +S1, +S2 - GI/Abdominal Exam GI & Abdominal Exam: Normal Bowel Sounds, Soft. absent: Distended, Tenderness - Extremities Exam Extremities exam: full ROM, normal inspection - Back Exam Back exam: NORMAL INSPECTION. absent: CVA tenderness (L), CVA tenderness (R) - Neurological Exam Neurological exam: Alert, Oriented x3 - Psychiatric Exam Psychiatric exam: Normal Affect, Normal Mood - Skin Skin Exam: Dry, Intact, Normal Color, Warm Discharge Plan - Discharge Medications Prescriptions: Levofloxacin [Levaquin] 500 mg PO DAILY #5 tablet Phenazopyridine HCl [Pyridium] 200 mg PO DAILY #2 tablet - Follow Up Plan Condition: FAIR Disposition: HOME/ ROUTINE Instructions: Urinary Tract Infection, Adult (DC), Normocytic Normochromic Anemia (DC) Additional Instructions: meds transferred to Pt. pharmacy Patient given copy of labs to take to [facility] Follow up with [facility] 09/11/17 ER precautions given Stable to DC home
== END 2017-09-09 10:36 | disposition home or self-care (01) | DRG 812 ==
LOC: H.ER 10:28 → H.ERHOLD 11:13 → H.MEDSURG1 17:12
PROVIDERS: ADMIT Family Medicine Geriatric Medicine; ATTEND Family Medicine Geriatric Medicine
PROC: 30233N1 Transfusion of Nonautologous Red Blood Cells into Peripheral Vein, Percutaneous Approach (ICD-10-PCS; principal; 2017-09-08)
DX: D64.9 Anemia, unspecified (principal); N39.0 Urinary tract infection, site not specified; C53.9 Malignant neoplasm of cervix uteri, unspecified; F17.210 Nicotine dependence, cigarettes, uncomplicated

== ENCOUNTER 2018-01-21 19:11 | Emergency (ER) | payer SELFPAY ==
[2018-01-21 19:12] VITALS: BMI 18.2
[2018-01-21 20:18] VITALS: BP 148/77; PULSE 72; RESP 16; TEMP 98.5; O2SAT 98
[2018-01-21 21:47] LABS: BASO % 0.5 % (0.0-2.0); EOS # 0.2 K/uL (0.0-0.7); EOS % 3.1 % (0.0-4.0); LYMPH # 0.8 K/uL (1.0-4.3); MEAN CELL VOLUME 98.8 fl (81.0-99.0); MEAN CORPUSCULAR HEMOGLOBIN 34.1 pg (27.0-31.0); MEAN CORPUSCULAR HGB CONC 34.5 g/dL (33.0-37.0); MEAN PLATELET VOLUME 7.8 fl (7.2-11.7); MONO # 0.6 K/uL (0.0-0.8); MONO % 7.9 % (0.0-10.0); NEUT # 6.1 K/uL (1.8-7.0); NEUT % 78.5 % (50.0-75.0); RBC 3.24 Mil/uL (3.80-5.20); RED CELL DISTRIBUTION WIDTH 12.4 % (11.5-14.5); WHITE BLOOD COUNT 7.8 K/uL (4.8-10.8)
[2018-01-21 22:01] LABS: BLOOD UREA NITROGEN 16 mg/dl (7-17); GFR NON-AFRICAN AMERICAN > 60
--- NOTE | 2018-01-21 22:33 | ED PDOC ---
HPI: Back Time Seen by Provider: 01/21/18 20:42 Chief Complaint (Nursing): Back Pain Chief Complaint (Provider): Back Pain History Per: Patient History/Exam Limitations: no limitations Onset/Duration Of Symptoms: Days Current Symptoms Are (Timing): Constant Quality Of Discomfort: "Pain" Additional Complaint(s): Shreyas Caal is a 57 year old female with a past medical history of vaginal cancer, who presents to the emergency department complaining of constant lower back pain, onset x1 month. Patient states it radiates to both her buttocks and that it has been worsening for the past week. Patient has taken OTC medications such as Tylenol and Motrin but has had no relief. She denies having any fever, urinary problems, numbness or weakness. PMD: [facility] Past Medical History Reviewed: Historical Data, Nursing Documentation, Vital Signs Vital Signs: Last Vital Signs Temp 98.5 F 01/21/18 20:12 Pulse 72 01/21/18 20:12 Resp 16 01/21/18 20:12 BP 148/77 01/21/18 20:12 Pulse Ox 98 01/21/18 20:12 - Medical History PMH: Malignancy (vaginal) Denies: Chronic Kidney Disease Other PMH: vaginal cancer - Surgical History Surgical History: Appendectomy - Family History Family History: States: Unknown Family Hx - Immunization History Hx Tetanus Toxoid Vaccination: Yes (2 years ago) - Home Medications Home Medications: Ambulatory Orders Medication Instructions Recorded oxyCODONE/Acetaminophen [Percocet 1 tab PO Q6H PRN #15 tab 10/04/14 5/325 mg Tab] Phenazopyridine HCl [Pyridium] 200 mg PO TID #6 tablet 11/08/15 Meloxicam [Mobic] 7.5 mg PO DAILY PRN #30 tab 03/27/16 Methocarbamol [Robaxin] 500 mg PO Q8 PRN #30 tab 03/27/16 Levofloxacin [Levaquin] 500 mg PO DAILY #5 tablet 09/09/17 Phenazopyridine HCl [Pyridium] 200 mg PO DAILY #2 tablet 09/09/17 - Allergies Allergies/Adverse Reactions: Allergies Allergy/AdvReac Type Severity Reaction Status Date / Time No Known Allergies Allergy Verified 01/21/18 20:12 Review of Systems ROS Statement: Except As Marked, All Systems Reviewed And Found Negative Constitutional: Negative for: Fever Genitourinary Female: Negative for: Dysuria, Frequency, Incontinence, Hematuria Musculoskeletal: Positive for: Back Pain (lower ) Neurological: Negative for: Weakness, Numbness Physical Exam - Reviewed Nursing Documentation Reviewed: Yes Vital Signs Reviewed: Yes - Physical Exam Appears: Positive for: Non-toxic, No Acute Distress Head Exam: Positive for: ATRAUMATIC, NORMOCEPHALIC Skin: Positive for: Normal Color, Warm, Dry Eye Exam: Positive for: Normal appearance, EOMI, PERRL ENT: Positive for: Normal ENT Inspection Neck: Positive for: Normal, Painless ROM, Supple Cardiovascular/Chest: Positive for: Regular Rate, Rhythm. Negative for: Murmur Respiratory: Positive for: Normal Breath Sounds. Negative for: Respiratory Distress Gastrointestinal/Abdominal: Positive for: Normal Exam, Soft. Negative for: Tenderness Back: Positive for: Other (TTP to lower back ) Extremity: Positive for: Normal ROM. Negative for: Pedal Edema, Deformity Neurologic/Psych: Positive for: Alert, Oriented (x3). Negative for: Motor/Sensory Deficits - Laboratory Results Result Diagrams: 01/21/18 21:41 01/21/18 21:41 - ECG O2 Sat by Pulse Oximetry: 98 (RA) Pulse Ox Interpretation: Normal Medical Decision Making Medical Decision Making: Initial Time: 21:25 Initial Impression: Lower back pain x1 month -Differential diagnosis includes but not limited to musculoskeletal pain, lumbar radiculopathy. Rule out lumbar spine metastasis. Initial Plan: --Lumbar spine CT --BMP --ED urine dipstick --CBC with differential --Erythrocyte sedimentation --Toradol 15 mg IVP -- Scribe Attestation: Documented by Louis Peterson, acting as a scribe for Sharda Bill MD Provider Scribe Attestation: All medical record entries made by the Scribe were at my direction and per sonally dictated by me. I have reviewed the chart and agree that the record accurately reflects my personal performance of the history, physical exam, medical decision making, and the department course for this patient. I have also personally directed, reviewed, and agree with the discharge instructions and disposition. Disposition - Clinical Impression Clinical Impression: Back pain - Disposition Disposition: Transfer of Care Disposition Time: 23:00 Condition: IMPROVED Additional Instructions: follow up with your doctor for findings on the CT scan follow up in 1-2 days return to the ED with any worsening or concerning symptoms Instructions: Low Back Pain (DC) Forms: Service Seeking (Bangladeshi) Patient Signed Over To: Jake Borrero Handoff Comments: pending CT and reevaluation
--- NOTE | 2018-01-21 23:26 | ED PDOC ---
- Laboratory Results Result Diagrams: 01/21/18 21:41 01/21/18 21:41 - ECG O2 Sat by Pulse Oximetry: 98 (RA) Pulse Ox Interpretation: Normal Medical Decision Making Medical Decision Making: Time: 2299 Patient endorsed to me by Dr. Rasheed pending CT and reevaluation. Time: 2321 CLINICAL HISTORY: Low back pain. TECHNIQUE: Multiple axial, coronal, sagittal CT images were obtained through the lumbar spine without IV contrast material. DLP 293.91. COMMENTS: There is no fracture visualized. The paraspinal soft tissues are unremarkable. There are no lytic or blastic lesions. There is straightening of the lumbar lordosis compatible with muscle spasm. Multilevel spondylosis present most severe at L2-L3 and L4-L5. At these levels there is moderate loss of disc space height, Schmorls nodes and vacuum disc phenomena are present. There is grade-1 anterolisthesis of L3 over L4 measures 2.5 mm. There is grade-1 retrolisthesis of L2 over L3 measures 3 mm. Evaluation of individual levels present the following: L5-S1, diffuse bulge is seen measuring up to 4 mm. There is moderate bilateral foraminal stenosis. Bilateral hypertrophic facet disease is seen. L4-L5, broad based herniated disc is seen across the disc space measures up to 5 mm. Superimposed bulge with spurring. There is moderate to severe bilateral foraminal stenosis and moderate to severe canal stenosis. AP dimension of the canal is approximately 7 mm. Severe bilateral hypertrophic facet disease and ligamentum flavum hypertrophy contribute. L3-L4, diffuse 4 mm bulging is seen. There is moderate bilateral foraminal stenosis and moderate canal stenosis. Hypertrophic facet disease and ligamentum flavum hypertrophy contribute. L2-L3, broad based herniated disc is seen measuring up to 5 mm. Superimposed bulge is seen with spurring. There is moderate bilateral foraminal stenosis and moderate to severe canal stenosis. AP dimension of the canal is 7 mm. L1-L2 level is unremarkable. IMPRESSION: 1. Straightening of the lumbar lordosis compatible with muscle spasm. 2. Grade-1 anterolisthesis of L3 over L4. 3. Grade-1 retrolisthesis of L2 over L3. 4. L5-S1, diffuse bulge. Moderate bilateral foraminal stenosis. Bilateral hypertrophic facet disease is seen. 5. L4-L5, broad based herniated disc. Superimposed bulge with spurring. Moderate to severe bilateral foraminal stenosis and moderate to severe canal s tenosis. Severe bilateral hypertrophic facet disease and ligamentum flavum hypertrophy contribute. 6. L3-L4, diffuse 4 mm bulging. Moderate bilateral foraminal stenosis and moderate canal stenosis. Hypertrophic facet disease and ligamentum flavum hypertrophy contribute. 7. L2-L3, broad based herniated disc. Superimposed bulge with spurring. Moderate bilateral foraminal stenosis and moderate to severe canal stenosis. Upon provider reevaluation patient is feeling better, is medically stable, and requires no further treatment in the ED at this time. reviewed results of CT with pt. she will follow up w the clinic, referral to back orthopedist for the rfindings noted. Patient will be discharged home. Counseling was provided and all questions were answered regarding diagnosis and need for follow up with back specialist. There is agreement to discharge plan. Return if symptoms persist or worsen. ----- Scribe Attestation: Documented by Katalina Jacobson, acting as a scribe for Jake Borrero MD. Provider Scribe Attestation: All medical record entries made by the Scribe were at my direction and personally dictated by me. I have reviewed the chart and agree that the record accurately reflects my personal performance of the history, physical exam, medical decision making, and the department course for this patient. I have also personally directed, reviewed, and agree with the discharge instructions and disposition. Disposition - Clinical Impression Clinical Impression: Back pain - POA Present On Arrival: None - Disposition Disposition: Routine/Home Disposition Time: 00:05 Condition: IMPROVED Additional Instructions: follow up with your doctor for findings on the CT scan follow up in 1-2 days return to the ED with any worsening or concerning symptoms Instructions: Low Back Pain (DC) Forms: [employer] (Palestinian)
--- NOTE | 2018-01-22 08:54 | CT ---
Date of service: 01/21/2018 PROCEDURE: CT Lumbar Spine without contrast HISTORY: lower back pain COMPARISON: None available. TECHNIQUE: Axial computed tomography images were obtained of the lumbar spine without the use of intravenous contrast. Coronal and sagittal reformatted images were created and reviewed. Radiation dose: Total exam DLP = 293.91 mGy-cm. This CT exam was performed using one or more of the following dose reduction techniques: Automated exposure control, adjustment of the mA and/or kV according to patient size, and/or use of iterative reconstruction technique. FINDINGS: VERTEBRAE: No fracture. Minimal 1 mm stepladder like malalignments attributed to degenerative ligamentous laxity noted at the L3 over L4 level and L2 over L3 levels. DISCS/SPINAL CANAL/NEURAL FORAMINA: L1-2: Unremarkable. L2-3: Diffuse disc bulge-superimposed broad-based disc herniation probable left posterolateral Prominent bilateral disc margins encroach mildly on each anterior inferior foramen. No central canal stenosis L3-4: Diffuse disc bulge. No central canal stenosis. Endplate ridging, disc bulging and bilateral facet hypertrophic arthrosis contribute to bilateral mild foraminal stenosis. Probable minimal 1 mm anterior listhesis of L3 relative to L4-attributed to ligamentous laxity. L4-5: Diffuse disc bulge with or without broad-based disc herniation shallow disc space. Vacuum disc phenomena. Endplate ridging present. Bilateral facet heart hypertrophic arthrosis. Minimal central canal stenosis. Bilateral mild foraminal stenosis attributed to the nipple pathologies present at this level. Here pedicle length also appear shallow. Discogenic endplate changes most pronounced at this level. L5-S1: Mild disc bulge. Posterior disc space narrowing. No bry central canal stenosis. Mild bilateral anterior inferior foraminal stenosis. PARASPINAL SOFT TISSUES: Right intrarenal pelvic caliectasis/hydronephrosis. Possible concomitant right parapelvic cyst. OTHER FINDINGS: There is presence of aortic atherosclerotic calcification and mural plaque on cross sectional studies. IMPRESSION: No fracture or lytic lesion. Degenerative lumbar spondylosis and degenerative disc disease. Multilevel disc bulges and/or broad-based disc herniations. Multilevel spinal canal compartment compromises as above most notable at L4-5. Right hydronephrosis-right ureteropelvic junction obstruction is a considerations chronicity is unknown. A concomitant right parapelvic cyst also is a consideration. Urological follow-up recommended. Comments: The additional right hydronephrosis possible right ureteropelvic junction obstruction with or without right parapelvic cysts is an additional finding not mentioned on the preliminary [place] rad report. Comments: Study marked for PA review .
== END 2018-01-22 00:20 | disposition home or self-care (01) ==
LOC: H.ER 19:11
DX: M54.9 Dorsalgia, unspecified (principal)
CPT/HCPCS: 72131; 80048; 85025; 85651; 96374; 99281; J1885

== ENCOUNTER 2018-02-02 18:57 | Emergency (ER) | payer SELFPAY ==
[2018-02-02 18:57] VITALS: BMI 18.2
[2018-02-02 19:12] VITALS: PULSE 72; RESP 16; TEMP 98.1; O2SAT 99
[2018-02-02 20:21] LABS: BASO # 0.1 K/uL (0.0-0.2); BASO % 0.8 % (0.0-2.0); EOS # 0.3 K/uL (0.0-0.7); EOS % 3.8 % (0.0-4.0); HEMOGLOBIN 11.8 g/dL (12.0-16.0); LYMPH # 0.9 K/uL (1.0-4.3); LYMPH % 10.5 % (20.0-40.0); MEAN CELL VOLUME 98.9 fl (81.0-99.0); MEAN CORPUSCULAR HGB CONC 33.4 g/dL (33.0-37.0); MEAN PLATELET VOLUME 7.6 fl (7.2-11.7); MONO # 0.7 K/uL (0.0-0.8); MONO % 8.2 % (0.0-10.0); NEUT # 6.3 K/uL (1.8-7.0); NEUT % 76.7 % (50.0-75.0); RBC 3.56 Mil/uL (3.80-5.20); WHITE BLOOD COUNT 8.2 K/uL (4.8-10.8)
[2018-02-02 20:35] LABS: BLOOD UREA NITROGEN 21 mg/dl (7-17); CALCIUM 9.5 mg/dL (8.4-10.2); GFR NON-AFRICAN AMERICAN > 60
--- NOTE | 2018-02-02 20:37 | ED PDOC ---
HPI: Female Pain Time Seen by Provider: 02/02/18 19:39 Chief Complaint (Nursing): Female Genitourinary Chief Complaint (Provider): Female Genitourinary History Per: Patient History/Exam Limitations: no limitations Onset/Duration Of Symptoms: Hrs (1x) Current Symptoms Are (Timing): Still Present Severity: Moderate Associated Symptoms: denies: Fever, Vomiting, Other (abdominal pain) Additional Complaint(s): 57 year old female with unknown status of vaginal cancer (completed chemotherapy and 25 rounds of radiation 5x months ago, patient's next visit to oncologist is at the end of this month) presents to the ED with complaints of vaginal bleeding (with blood clots) that started 1x hour prior to arrival. Patient denies having episodes of vaginal bleeding in the past. Patient was seen in ED on 01/21/2018 for complaints of back pain and states that it is still present today (patient was evaluated and discharged with a prescription for tramadol that she has taken with no improvement). Patient denies having abdominal pain, fevers, vomiting. Patient denies having an ZOOKEEPER. Patient states she had a hysterectomy 12x years ago with the removal of one ovary. Patient reports taking aleve occasionally. PMD: Arlyn Bolton MD Abnormal Vaginal Bleeding: Yes Past Medical History Reviewed: Historical Data, Nursing Documentation, Vital Signs Vital Signs: Last Vital Signs Temp 98.1 F 02/02/18 19:11 Pulse 72 02/02/18 19:11 Resp 16 02/02/18 19:11 BP 153/75 H 02/02/18 19:11 Pulse Ox 99 02/02/18 19:11 - Medical History PMH: Malignancy (vaginal) Denies: Chronic Kidney Disease - Surgical History Surgical History: Appendectomy Other surgeries: hysterectomy 2005 - Family History Family History: States: Other - Social History Alcohol: None Drugs: Denies - Immunization History Hx Tetanus Toxoid Vaccination: Yes (2 years ago) - Home Medications Home Medications: Ambulatory Orders Medication Instructions Recorded oxyCODONE/Acetaminophen [Percocet 1 tab PO Q6H PRN #15 tab 10/04/14 5/325 mg Tab] Phenazopyridine HCl [Pyridium] 200 mg PO TID #6 tablet 11/08/15 Meloxicam [Mobic] 7.5 mg PO DAILY PRN #30 tab 03/27/16 Methocarbamol [Robaxin] 500 mg PO Q8 PRN #30 tab 03/27/16 Levofloxacin [Levaquin] 500 mg PO DAILY #5 tablet 09/09/17 Phenazopyridine HCl [Pyridium] 200 mg PO DAILY #2 tablet 09/09/17 - Allergies Allergies/Adverse Reactions: Allergies Allergy/AdvReac Type Severity Reaction Status Date / Time No Known Allergies Allergy Verified 02/02/18 19:13 Review of Systems ROS Statement: Except As Marked, All Systems Reviewed And Found Negative Constitutional: Negative for: Fever Gastrointestinal: Negative for: Vomiting, Abdominal Pain Genitourinary Female: Positive for: Vaginal Bleeding Musculoskeletal: Positive for: Back Pain Physical Exam - Reviewed Nursing Documentation Reviewed: Yes Vital Signs Reviewed: Yes - Physical Exam Appears: Positive for: Well, Non-toxic, No Acute Distress Head Exam: Positive for: ATRAUMATIC, NORMOCEPHALIC Skin: Positive for: Normal Color, Warm, Dry Eye Exam: Positive for: EOMI Cardiovascular/Chest: Positive for: Regular Rate, Rhythm Respiratory: Positive for: Normal Breath Sounds Gastrointestinal/Abdominal: Positive for: Soft. 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 Negative for: Active Bleeding, Mass, Tender Adnexa Extremity: Positive for: Normal ROM Neurologic/Psych: Positive for: Alert, Oriented (3x) - Laboratory Results Result Diagrams: 02/02/18 20:16 02/02/18 20:16 - ECG O2 Sat by Pulse Oximetry: 99 (RA) Pulse Ox Interpretation: Normal Medical Decision Making Medical Decision Makin:37 Initial impression: 57 year old female with abnormal vaginal bleeding. Differential diagnoses include but are not limited to vaginitis, post-menopausal vaginal bleeding, and vaginal cancer. Initial plan: * CT Abdomen/Pelvis * BMP * CBC * reevaluation 23:11 CT Abdomen/Pelvis FINDINGS: LUNG BASES: The heart is not enlarged. The pulmonary bases are well-aerated. There are bilateral Bochdalek hernias LIVER: Unremarkable. GALLBLADDER AND BILE DUCTS: No radiopaque gallbladder calculi identified. Common bile duct within pancreatic head is 8 mm in diameter see series 2 image 26. This is borderline enlarged. PANCREAS: Unremarkable. SPLEEN: Unremarkable. ADRENAL GLANDS: Unremarkable. KIDNEYS, URETERS, AND BLADDER: There is a high grade right hydronephrosis with a dilated renal pelvis and proximal ureter, until the ureter is not visualized There appear to be 2 structures posterior to the urinary bladder and anterior to the rectosigmoid: The most posterior is a soft tissue density with a central cavity presumed of fluid and several air bubbles. Abutting the posterior aspect of the urinary bladder is a solid soft tissue density measuring approximately 42 x 9.7 mmsee series 2 image 64. STOMACH AND BOWEL: Unremarkable appearance of the stomach and bowel. No evidence of bowel obstruction. No evidence suggesting enteritis or colitis. APPENDIX: No evidence of acute appendicitis on CT examination. PERITONEUM: No free fluid. No free air. LYMPH NODES: No lymphadenopathy is evident. VASCULATURE: No evidence of abdominal aortic aneurysm. BONES: No aggressive appearing osseous lesion. No acute osseous pathology evident. MISCELLANEOUS: Either the patient has had a hysterectomy or the uterus is small. the findings were discussed directly with the attending physician by telephone. IMPRESSION: 1. There is a high grade right hydronephrosis with a dilated renal pelvis and proximal ureter, until the ureter is not visualized 2. No radiopaque gallbladder calculi identified. Common bile duct within pancreatic head is 8 mm in diameter see series 2 image 26. This is borderline enlarged. 3. Either the patient has had a hysterectomy or the uterus is small. 4. There appear to be 2 structures posterior to the urinary bladder and anterior to the rectosigmoid: The most posterior is a soft tissue density with a central cavity presumed of fluid and several air bubbles. 5. Abutting the posterior aspect of the urinary bladder is a solid soft tissue density measuring approximately 42 x 9.7 mmsee series 2 image 64. 6. The heart is not enlarged. The pulmonary bases are well-aerated. There are bilateral Bochdalek hernias Scribe Attestation: Documented Martita Matta, acting as a scribe for Sharda Rasheed MD. Provider Scribe Attestation: All medical record entries made by the Scribe were at my direction and personally dictated by me. I have reviewed the chart and agree that the record accurately reflects my personal performance of the history, physical exam, medical decision making, and the department course for this patient. I have also personally directed, reviewed, and agree with the discharge instructions and disposition. Disposition - Clinical Impression Clinical Impression: Vaginal bleeding, Pelvic mass in female - Patient ED Disposition Is Patient to be Admitted: No Doctor Will See Patient In The: Office Counseled Patient/Family Regarding: Studies Performed, Diagnosis, Need For Followup - Disposition Referrals: [facility] [Outside] Disposition: Routine/Home Disposition Time: 00:02 Condition: GOOD
[2018-02-02] MEDS ORDERED: Iohexol 300 100 ML IJ ONE (21:32)
[2018-02-02] MEDS ORDERED: Sodium Chloride 0.9% 50 ML IV ONE (21:33)
[2018-02-03] MEDS ORDERED: Oxycodone/Acetaminophen 5/325 mg Tab PO ONE (00:04)
[2018-02-03] MEDS ORDERED: Oxycodone/Acetaminophen 5/325 mg Tab ONE (00:17)
[2018-02-03 00:24] VITALS: BP 160/79
--- NOTE | 2018-02-03 14:23 | CT ---
Date of service: 02/02/2018 PROCEDURE: CT Abdomen and Pelvis with contrast HISTORY: vagina l bleeding hx of vaginal CA COMPARISON: None. TECHNIQUE: Contrast dose: 95 mL of Omnipaque 300 intravenously. Axial and reformatted coronal and sagittal CT images of the abdomen and pelvis were obtained after IV contrast administration. Radiation dose: Total exam DLP = 232.99 mGy-cm. This CT exam was performed using one or more of the following dose reduction techniques: Automated exposure control, adjustment of the mA and/or kV according to patient size, and/or use of iterative reconstruction technique. FINDINGS: LOWER THORAX: Unremarkable. LIVER: There is 0.6 centimeter low-attenuation lesion at the anterior aspect of the left liver lobe. There is 4 millimeter low-attenuation lesion at the right liver lobe. Both lesion not well characterized in this study. Mild heterogeneous enhancement of the liver is noted. The liver is mildly enlarged. The portal vein is patent. GALLBLADDER AND BILE DUCTS: No evidence of acute cholecystitis or radiodense gallstones. The common bile duct is slightly prominent in size. PANCREAS: There is low-attenuation cyst extending to the main pancreatic duct seen at the pancreatic body measures 0.6 centimeter image 42 series 3. SPLEEN: Unremarkable. ADRENALS: Unremarkable. No mass. KIDNEYS AND URETERS: There is a moderate to severe right hydronephrosis and hydroureter up to the distal portion of the right ureter. The right kidney demonstrates delayed enhancement compared to the left. The left kidney is grossly unremarkable. No evidence of obstructing stone. VASCULATURE: Unremarkable. No aortic aneurysm. No aortic atherosclerotic calcification or mural plaque present. BOWEL: Sigmoid and rectal wall thickening is noted. Findings could be due to prior pelvic treatment. No obstruction. No gross mural thickening. APPENDIX: No evidence of appendicitis. PERITONEUM: Unremarkable. No free fluid. No free air. LYMPH NODES: Unremarkable. No enlarged lymph nodes. BLADDER: Diffuse urinary bladder wall thickening is noted. REPRODUCTIVE: The patient is status post partial hysterectomy. There is heterogeneous enhancing mass lesion posterior to the urinary bladder contains droplet of air. The possibility of vaginal cancer recurrence should be excluded. There is 2.2 x 2.3 centimeters cyst at the right pelvis likely represent right adnexal cyst. BONES: No acute fracture. OTHER FINDINGS: There is a fat stranding and trace fluid around the rectum in the posterior lower pelvis. IMPRESSION: Moderate to severe right hydronephrosis and hydroureter up to the distal right ureter. Suspicious for heterogeneous enhancing mass lesion posterior to the bladder and anterior to the rectum and anus. This suspicious mass continuous with the dome of the vagina and a abutting the posterior wall of the urinary bladder. The possibility of vaginal tumor recurrence should be excluded. Further assessment by other modality such as MRI and or ultrasound is suggested. Mild urinary bladder wall thickening. 2.2 x 2.3 centimeter cyst at the right adnexa. Two sub centimeter low-attenuation lesions in the liver not fully characterized in this study. Preliminary report contains concordant findings was submitted to the referring [facility] radiology
== END 2018-02-03 00:24 | disposition home or self-care (01) ==
LOC: H.ER 18:57
DX: N93.9 Abnormal uterine and vaginal bleeding, unspecified (principal); R19.00 Intra-abdominal and pelvic swelling, mass and lump, unspecified site
CPT/HCPCS: 74177; 80048; 81025; 85025; 99285; Q9967

== ENCOUNTER 2018-02-25 06:36 | Emergency (ER) | payer SELFPAY ==
[2018-02-25 06:36] VITALS: BMI 18.2
[2018-02-25 07:01] VITALS: RESP 18; TEMP 98.2; O2SAT 98
[2018-02-25] MEDS ORDERED: Morphine 4 MG/ML VIAL ONE (07:26)
--- NOTE | 2018-02-25 07:29 | ED PDOC ---
HPI: Female Pain Time Seen by Provider: 02/25/18 07:02 Chief Complaint (Nursing): Female Genitourinary Chief Complaint (Provider): Female Genitourinary History Per: Patient History/Exam Limitations: no limitations Onset/Duration Of Symptoms: Days (x1 week) Current Symptoms Are (Timing): Still Present Associated Symptoms: denies: Nausea, Vomiting, Diarrhea, Back Pain, Urinary Symptoms Additional Complaint(s): Shreyas Caal is a 57 year old female with a past medical history of vaginal cancer, who presents to the emergency department complaining of having worsening groin pain, onset x1 week. Patient states that she is currently taking pain killers but she has had no improvement in her symptoms. She also states that she does not want any additional lab tests because she has had them recently as part of her cancer check up in [place]. Patient reports to have had 25 rounds of radiation and her most recent PET-CT on 02/17 reports that she has a right adnexal cystic structure, improvement in right hyrdronephrosis, and resolution of previously seen vaginal cuff mass. She states she does have a prior history of back pain but does not complain of any at this time. Patient also denies any hip pain, dysuria, hematuria, vaginal bleeding, fall, numbness, or any tingling. PMD: Dr. Fritz Past Medical History Reviewed: Historical Data, Nursing Documentation, Vital Signs Vital Signs: Last Vital Signs Temp 98.2 F 02/25/18 06:46 Pulse 79 02/25/18 06:46 Resp 18 02/25/18 06:46 BP 143/72 02/25/18 06:46 Pulse Ox 98 02/25/18 06:46 - Medical History PMH: Malignancy (vaginal) Denies: Chronic Kidney Disease - Surgical History Surgical History: Appendectomy - Family History Family History: States: Unknown Family Hx - Immunization History Hx Tetanus Toxoid Vaccination: Yes (2 years ago) - Home Medications Home Medications: Ambulatory Orders Medication Instructions Recorded oxyCODONE/Acetaminophen [Percocet 1 tab PO Q6H PRN #15 tab 10/04/14 5/325 mg Tab] Phenazopyridine HCl [Pyridium] 200 mg PO TID #6 tablet 11/08/15 Meloxicam [Mobic] 7.5 mg PO DAILY PRN #30 tab 03/27/16 Methocarbamol [Robaxin] 500 mg PO Q8 PRN #30 tab 03/27/16 Levofloxacin [Levaquin] 500 mg PO DAILY #5 tablet 09/09/17 Phenazopyridine HCl [Pyridium] 200 mg PO DAILY #2 tablet 09/09/17 traMADol [Ultram] 50 mg PO BID PRN 3 Days tab 02/25/18 - Allergies Allergies/Adverse Reactions: Allergies Allergy/AdvReac Type Severity Reaction Status Date / Time No Known Allergies Allergy Verified 02/02/18 19:13 Review of Systems ROS Statement: Except As Marked, All Systems Reviewed And Found Negative Cardiovascular: Negative for: Chest Pain Gastrointestinal: Negative for: Nausea, Vomiting, Abdominal Pain, Diarrhea Genitourinary Female: Positive for: Other (groin pain). Negative for: Dysuria, Hematuria, Vaginal Discharge, Vaginal Bleeding Neurological: Negative for: Numbness (tingling) Physical Exam - Reviewed Nursing Documentation Reviewed: Yes Vital Signs Reviewed: Yes - Physical Exam Appears: Positive for: Non-toxic, No Acute Distress Head Exam: Positive for: ATRAUMATIC, NORMOCEPHALIC Skin: Positive for: Normal Color Eye Exam: Positive for: Normal appearance Cardiovascular/Chest: Positive for: Regular Rate, Rhythm. Negative for: Murmur Respiratory: Positive for: Normal Breath Sounds. Negative for: Respiratory Distress Gastrointestinal/Abdominal: Positive for: Normal Exam, Soft. Negative for: Tenderness Pelvic Exam: Positive for: Other (mild tenderness to right groin tendon ) Back: Positive for: Normal Inspection. Negative for: L CVA Tenderness, R CVA Tenderness, Vertebral Tenderness Extremity: Positive for: Normal ROM Neurologic/Psych: Positive for: Alert, Oriented (x3). Negative for: Motor/Sensory Deficits, Other (numbness or tingling ) Comments: Bonnie was present during the Physical exam. - ECG O2 Sat by Pulse Oximetry: 98 (RA) Pulse Ox Interpretation: Normal Medical Decision Making Medical Decision Making: Initial Time: 07:15 Initial Impression: Pain of Tendon Initial Plan: --Toradol 15 mg IM --Morphine 4 mg IM Scribe Attestation: Documented by Louis Peterson, acting as a scribe for Jad Hewitt MD. Provider Scribe Attestation: All medical record entries made by the Scribe were at my direction and personally dictated by me. I have reviewed the chart and agree that the record accurately reflects my personal performance of the history, physical exam, medical decision making, and the department course for this patient. I have also personally directed, reviewed, and agree with the discharge instructions and disposition. Disposition - Clinical Impression Clinical Impression: Pain of tendon - Disposition Referrals: [facility] [Outside] - 02/26/18 Disposition Time: 07:58 Condition: STABLE Additional Instructions: Return if not better in 3 days. Prescriptions: traMADol [Ultram] 50 mg PO BID PRN 3 Days tab PRN Reason: Pain, Moderate (4-7) Instructions: Muscle and Bone Pain (DC) Forms: [employer] (Nepalese)
[2018-02-25] MEDS ORDERED: Morphine 4 MG/ML VIAL IM ONE (07:45)
[2018-02-25 08:04] VITALS: BP 138/63; PULSE 68
== END 2018-02-25 07:58 | disposition home or self-care (01) ==
LOC: H.ER 06:36
DX: R10.30 Lower abdominal pain, unspecified (principal)
CPT/HCPCS: 96372; 99284; J1885; J2270

== ENCOUNTER 2018-02-26 10:54 | Observation (INO) | payer SELFPAY ==
[2018-02-26 10:54] VITALS: BMI 18.2
--- NOTE | 2018-02-26 12:50 | ED PDOC ---
HPI: General Adult Time Seen by Provider: 02/26/18 12:48 Chief Complaint (Nursing): Female Genitourinary Chief Complaint (Provider): suprapubic swelling History Per: Patient (57 y/o female h/o vaginal cancer treated in past with chemo here with ongoing right suprapubic pain and swelling x 1 week. NOtes vaginal discharge. NO sexual activity. Has had hysterectomy and one ovary removed.) Past Medical History Reviewed: Historical Data, Nursing Documentation, Vital Signs Vital Signs: Last Vital Signs Temp 99.5 F 02/26/18 11:11 Pulse 112 H 02/26/18 11:11 Resp 19 02/26/18 11:11 BP 113/65 02/26/18 11:11 Pulse Ox 98 02/26/18 11:11 - Medical History PMH: Malignancy (vaginal) Denies: Chronic Kidney Disease - Surgical History Surgical History: Appendectomy - Family History Family History: States: Unknown Family Hx - Immunization History Hx Tetanus Toxoid Vaccination: Yes (2 years ago) - Home Medications Home Medications: Ambulatory Orders Medication Instructions Recorded traMADol [Ultram] 50 mg PO Q6 PRN 02/26/18 Apixaban [Eliquis] 2.5 mg PO BID #60 tablet 02/27/18 - Allergies Allergies/Adverse Reactions: Allergies Allergy/AdvReac Type Severity Reaction Status Date / Time No Known Allergies Allergy Verified 02/02/18 19:13 Review of Systems ROS Statement: Except As Marked, All Systems Reviewed And Found Negative Physical Exam - Reviewed Nursing Documentation Reviewed: Yes Vital Signs Reviewed: Yes - Physical Exam Appears: Positive for: Well, Non-toxic, No Acute Distress Head Exam: Positive for: ATRAUMATIC, NORMAL INSPECTION, NORMOCEPHALIC Skin: Positive for: Normal Color, Warm, DRY Eye Exam: Positive for: EOMI, Normal appearance, PERRL ENT: Positive for: Normal ENT Inspection Neck: Positive for: Normal, Painless ROM Cardiovascular/Chest: Positive for: Regular Rate, Rhythm Respiratory: Positive for: CNT, Normal Breath Sounds Gastrointestinal/Abdominal: Positive for: Normal Exam, Soft Pelvic Exam: Positive for: Other (right side suprapubic swelling.) Back: Positive for: Normal Inspection Extremity: Positive for: Normal ROM Neurologic/Psych: Positive for: Alert, Oriented - Laboratory Results Result Diagrams: 02/27/18 06:25 02/26/18 13:10 - ECG O2 Sat by Pulse Oximetry: 98 - Progress ED Course And Treament: NS 1 LITER 500 ML PER HOUR TORADOL 15 MG IV X [address] ABD/PELVIS: FINDINGS: LOWER THORAX: Unremarkable. LIVER: Unremarkable. No gross lesion or ductal dilatation. GALLBLADDER AND BILE DUCTS: Unremarkable. PANCREAS: Unremarkable. No gross lesion or ductal dilatation. SPLEEN: Unremarkable. ADRENALS: Unremarkable. No mass. KIDNEYS AND URETERS: Resolution of previously identified right hydroureteronephrosis. Unremarkable left kidney in ureter. Unremarkable. No hydronephrosis. No solid mass. VASCULATURE: Unremarkable. No aortic aneurysm. No atherosclerotic calcification or mural plaque present. BOWEL: Unremarkable. No obstruction. No gross mural thickening. APPENDIX: Unremarkable. Normal appendix. PERITONEUM: Stable mass in the cul-de-sac interposed between the urinary bladder in the rectum. The mass continues to contain air suggesting fistulous communication with an adjacent structure. LYMPH NODES: Unremarkable. No enlarged lymph nodes. BLADDER: Unremarkable. REPRODUCTIVE: Stable right adnexal cyst 2.4 x 2.6 cm. BONES: No acute fracture. OTHER FINDINGS: Edematous changes extending from the skin surface to the peritoneal reflection right inguinal and suprapubic region. There is an ill-defined mass likely accounting for findings on physical examination just to the right of the midline measuring 2.4 x 5.7 cm. Adjacent skin and subcutaneous edematous change also represent new findings. This appears to be secondary to a fracture of the right pubis and adjacent edema, hemorrhage within external obturator and pectineus muscles. The fracture is identified on axial series 3/140-154 IMPRESSION: Acute fracture through the right pubic bone with extensive hemorrhage and soft tissue findings described in greater detail above. This finding was not apparent on the prior CT 02/02/2018. Additional benign and incidental findings are stable. Communication of results: I discussed the findings directly with the physician assistant womens volleyball coach (Katy Gonzales) at the time of this interpretation 14:14. MORPHINE 2 MG IV X 1 DOSE D/W KIMMIE ZEE PA-C; D/W DR BARR FOR ADMISSION Disposition - Clinical Impression Clinical Impression: Pelvic fracture - Patient ED Disposition Is Patient to be Admitted: Yes - Disposition Disposition: Routine/Home Disposition Time: 16:04 Condition: STABLE - Pt Status Changed To: Hospital Disposition Of: Observation
[2018-02-26 13:21] LABS: BASO % 0.3 % (0.0-2.0); EOS # 0.2 K/uL (0.0-0.7); EOS % 1.9 % (0.0-4.0); HEMOGLOBIN 11.9 g/dL (12.0-16.0); LYMPH # 0.6 K/uL (1.0-4.3); LYMPH % 5.3 % (20.0-40.0); MEAN CELL VOLUME 102.6 fl (81.0-99.0); MEAN CORPUSCULAR HEMOGLOBIN 33.2 pg (27.0-31.0); MEAN CORPUSCULAR HGB CONC 32.3 g/dL (33.0-37.0); MEAN PLATELET VOLUME 8.3 fl (7.2-11.7); MONO # 0.9 K/uL (0.0-0.8); MONO % 7.7 % (0.0-10.0); NEUT # 9.4 K/uL (1.8-7.0); NEUT % 84.8 % (50.0-75.0); NRBC % 0.1 % (0.0-0.0); PLATELET COUNT 275 K/uL (130-400); RBC 3.58 Mil/uL (3.80-5.20); RED CELL DISTRIBUTION WIDTH 13.7 % (11.5-14.5); WHITE BLOOD COUNT 11.1 K/uL (4.8-10.8)
[2018-02-26 13:33] LABS: ALB/GLOB RATIO 1.2 (1.0-2.1); ALBUMIN 3.7 g/dL (3.5-5.0); ALT/SGPT 24 U/L (9-52); AST/SGOT 21 U/L (14-36); BLOOD UREA NITROGEN 23 mg/dl (7-17); CALCIUM 8.7 mg/dL (8.4-10.2); GFR NON-AFRICAN AMERICAN > 60
[2018-02-26 14:00] LABS: SQUAMOUS EPITHIAL 1 /hpf (0-5); URINE BACTERIA RARE (<OCC); URINE BILIRUBIN NEGATIVE (NEGATIVE); URINE BLOOD NEGATIVE (NEGATIVE); URINE CLARITY SLIGHTY-CLOUDY (Clear); URINE COLOR YELLOW (YELLOW); URINE GLUCOSE (UA) NEG (Normal); URINE HYALINE CAST 0-2 /hpf (0-2); URINE LEUKOCYTE ESTERASE MOD Leu/uL (Negative); URINE PROTEIN NEGATIVE (NEGATIVE); URINE UROBILINOGEN 0.2-1.0 mg/dL (0.2-1.0)
--- NOTE | 2018-02-26 14:19 | CT ---
Date of service: 02/26/2018 PROCEDURE: CT Abdomen and Pelvis without intravenous contrast HISTORY: right suprapubic swelling COMPARISON: 02/02/2018. CT abdomen and pelvis. Summary of findings on the comparison examination: Moderate to severe right hydronephrosis and hydro up to the distal ureter. Heterogeneous enhancing mass lesion posterior to the bladder and anterior to the rectum. TECHNIQUE: Unenhanced. Neither IV nor oral contrast administered Radiation dose: Total exam DLP = 181.34 mGy-cm. This CT exam was performed using one or more of the following dose reduction techniques: Automated exposure control, adjustment of the mA and/or kV according to patient size, and/or use of iterative reconstruction technique. FINDINGS: LOWER THORAX: Unremarkable. LIVER: Unremarkable. No gross lesion or ductal dilatation. GALLBLADDER AND BILE DUCTS: Unremarkable. PANCREAS: Unremarkable. No gross lesion or ductal dilatation. SPLEEN: Unremarkable. ADRENALS: Unremarkable. No mass. KIDNEYS AND URETERS: Resolution of previously identified right hydroureteronephrosis. Unremarkable left kidney in ureter. Unremarkable. No hydronephrosis. No solid mass. VASCULATURE: Unremarkable. No aortic aneurysm. No atherosclerotic calcification or mural plaque present. BOWEL: Unremarkable. No obstruction. No gross mural thickening. APPENDIX: Unremarkable. Normal appendix. PERITONEUM: Stable mass in the cul-de-sac interposed between the urinary bladder in the rectum. The mass continues to contain air suggesting fistulous communication with an adjacent structure. LYMPH NODES: Unremarkable. No enlarged lymph nodes. BLADDER: Unremarkable. REPRODUCTIVE: Stable right adnexal cyst 2.4 x 2.6 cm. BONES: No acute fracture. OTHER FINDINGS: Edematous changes extending from the skin surface to the peritoneal reflection right inguinal and suprapubic region. There is an ill-defined mass likely accounting for findings on physical examination just to the right of the midline measuring 2.4 x 5.7 cm. Adjacent skin and subcutaneous edematous change also represent new findings. This appears to be secondary to a fracture of the right pubis and adjacent edema, hemorrhage within external obturator and pectineus muscles. The fracture is identified on axial series 3/140-154 IMPRESSION: Acute fracture through the right pubic bone with extensive hemorrhage and soft tissue findings described in greater detail above. This finding was not apparent on the prior CT 02/02/2018. Additional benign and incidental findings are stable. Communication of results: I discussed the findings directly with the physician assistant public defender (Setu Gonzales) at the time of this interpretation 14:14.
[2018-02-26 15:20] LABS: PROTHROMBIN TIME 11.7 Seconds (9.8-13.1)
[2018-02-26 15:23] LABS: PARTIAL THROMBOPLASTIN TIME 28.6 Seconds (25.6-37.1)
[2018-02-26 15:42] LABS: EOSINOPHIL 5 % (0-7); LYMPHOCYTE 7 % (20-50); MONOCYTE 11 % (0-10); NEUTROPHIL 77 % (42-75); PLATELET ESTIMATE NORMAL (NORMAL); TOTAL CELLS COUNTED 100
[2018-02-26 15:43] LABS: HYPOCHROMIC SLIGHT
--- NOTE | 2018-02-26 16:28 | CP.PCM.HP ---
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 Pt state for past 10 days after she left chiropractor, she was having this Suprapubic pain that is not controlled with NSAID medication. Pt state today is so severe she cant stand on her leg, and had to call an [employer] front end driver to bring her to the hospital. 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 Pt have no other complain at moment. Pt denies any fever, chill, chest pain, sob, abd pain, diarrhea, constipation, dysuria, polyuria. But does state that she have vaginal discharge. PCP: Dr. Villanueva Allergy none Medication: none PMH: vaginal cancer VIN3 treated PSH: Hysterectomy PFH: None Social: Smoke 10 cig for 45 year, drink socially, used marijuana when she was in chemotherapy No surrogate Code: DNR/DNI ED course Pt vitals were within normal limit. Pt recieved IV morphine 2mg Ortho consult was put CBC CMB was within normal limit UA: + for RBC and WBC [address] scan: Acute fracture through the right pubic bone with extensive hemorrhage and soft tissue findings described in greater detail above. This finding was not apparent on the prior CT 02/02/2018. Present on Admission - Present on Admission Any Indicators Present on Admission: No Review of Systems - Review of Systems All systems: reviewed and no additional remarkable complaints except Past Patient History - Past Medical History & Family History Past Medical History?: Yes - Past Social History Smoking Status: Heavy Smoker > 10 Cigarettes Daily - CARDIAC Hx Cardiac Disorders: No - PULMONARY Hx Respiratory Disorders: No - NEUROLOGICAL Hx Neurological Disorder: No - HEENT Hx HEENT Problems: No - RENAL Hx Chronic Kidney Disease: No - ENDOCRINE/METABOLIC Hx Endocrine Disorders: No - HEMATOLOGICAL/ONCOLOGICAL Hx Blood Disorders: Yes Hx Cancer: Yes - INTEGUMENTARY Hx Dermatological Problems: No - MUSCULOSKELETAL/RHEUMATOLOGICAL Hx Falls: No - GASTROINTESTINAL Hx Diarrhea: Yes (chemo) - GENITOURINARY/GYNECOLOGICAL Hx Genitourinary Disorders: Yes Other/Comment: Vaginal Cancer - PSYCHIATRIC Hx Psychophysiologic Disorder: No Hx Substance Use: Yes (40 Years ago) - SURGICAL HISTORY Hx Appendectomy: Yes - ANESTHESIA Hx Anesthesia: Yes Hx Anesthesia Reactions: No Hx Malignant Hyperthermia: No Meds Allergies/Adverse Reactions: Allergies Allergy/AdvReac Type Severity Reaction Status Date / Time No Known Allergies Allergy Verified 02/02/18 19:13 Physical Exam - Constitutional Appears: Well, Non-toxic, No Acute Distress - Head Exam Head Exam: ATRAUMATIC, NORMAL INSPECTION, NORMOCEPHALIC - Eye Exam Eye Exam: EOMI, Normal appearance, PERRL Pupil Exam: NORMAL ACCOMODATION, PERRL - ENT Exam ENT Exam: Mucous Membranes Moist, Normal Exam - Neck Exam Neck exam: Positive for: Normal Inspection - Respiratory Exam Respiratory Exam: Clear to Auscultation Bilateral, NORMAL BREATHING PATTERN. absent: Rhonchi, Wheezes - Cardiovascular Exam Cardiovascular Exam: REGULAR RHYTHM, +S1, +S2 - GI/Abdominal Exam GI & Abdominal Exam: Normal Bowel Sounds, Soft - Extremities Exam Additional comments: Right leg is internally rotated, restricted ROM Due to Pain, there is moderate swollen around the hip. LEFt leg wnl Results - Vital Signs Recent Vital Signs: Last Vital Signs Temp 97.6 F 02/26/18 16:03 Pulse 75 02/26/18 16:03 Resp 18 02/26/18 16:03 BP 125/64 02/26/18 16:03 Pulse Ox 98 02/26/18 16:04 - Labs Result Diagrams: 02/26/18 13:10 02/26/18 13:10 Labs: Laboratory Results - last 24 hr 02/26/18 02/26/18 02/26/18 13:10 13:10 13:10 WBC 11.1 H RBC 3.58 L Hgb 11.9 L Hct 36.7 MCV 102.6 H D MCH 33.2 H MCHC 32.3 L RDW 13.7 Plt Count 275 MPV 8.3 Neut % (Auto) 84.8 H Lymph % (Auto) 5.3 L [place] % (Auto) 7.7 Eos % (Auto) 1.9 Baso % (Auto) 0.3 Neut # (Auto) 9.4 H Lymph # (Auto) 0.6 L [place] # (Auto) 0.9 H Eos # (Auto) 0.2 Baso # (Auto) 0.0 Neutrophils % (Manual) 77 H Lymphocytes % (Manual) 7 L Monocytes % (Manual) 11 H Eosinophils % (Manual) 5 Platelet Estimate Normal Hypochromasia (manual) Slight Macrocytosis (manual) Slight PT INR APTT Sodium 137 Potassium 3.7 Chloride 105 Carbon Dioxide 26 Anion Gap 10 BUN 23 H Creatinine 0.8 Est GFR ( Amer) > 60 Est GFR (Non-Af Amer) > 60 Random Glucose 104 Calcium 8.7 Total Bilirubin 0.4 AST 21 ALT 24 Alkaline Phosphatase 64 Total Protein 6.8 Albumin 3.7 Globulin 3.1 Albumin/Globulin Ratio 1.2 Urine Color Yellow Urine Clarity Slighty-cloudy Urine pH 5.0 Ur Specific [place] 1.025 Urine Protein Negative Urine Glucose (UA) Neg Urine Ketones Negative Urine Blood Negative Urine Nitrate Negative Urine Bilirubin Negative Urine Urobilinogen 0.2-1.0 Ur Leukocyte Esterase Mod Urine RBC (Auto) 5 H Urine Microscopic WBC 88 H Ur Squamous Epith Cells 1 Urine Bacteria Rare Hyaline Casts 0-2 Urine Yeast (Budding) Few H Blood Type Antibody Screen BBK History Checked 02/26/18 02/26/18 14:42 14:42 WBC RBC Hgb Hct MCV MCH MCHC RDW Plt Count MPV Neut % (Auto) Lymph % (Auto) [place] % (Auto) Eos % (Auto) Baso % (Auto) Neut # (Auto) Lymph # (Auto) [place] # (Auto) Eos # (Auto) Baso # (Auto) Neutrophils % (Manual) Lymphocytes % (Manual) Monocytes % (Manual) Eosinophils % (Manual) Platelet Estimate Hypochromasia (manual) Macrocytosis (manual) PT 11.7 INR 1.0 APTT 28.6 Sodium Potassium Chloride Carbon Dioxide Anion Gap BUN Creatinine Est GFR ( Amer) Est GFR (Non-Af Amer) Random Glucose Calcium Total Bilirubin AST ALT Alkaline Phosphatase Total Protein Albumin Globulin Albumin/Globulin Ratio Urine Color Urine Clarity Urine pH Ur Specific [place] Urine Protein Urine Glucose (UA) Urine Ketones Urine Blood Urine Nitrate Urine Bilirubin Urine Urobilinogen Ur Leukocyte Esterase Urine RBC (Auto) Urine Microscopic WBC Ur Squamous Epith Cells Urine Bacteria Hyaline Casts Urine Yeast (Budding) Blood Type A POSITIVE Antibody Screen Negative BBK History Checked Patient has bt Assessment & Plan - Assessment and Plan (Free Text) Assessment: Pt is a 57 yo female with 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 Ct scan + with fracture in hip with hematoma. Ortho was consulted, not a candidate for surgery. Pt was admitted for 24g observation for H/H and pain management. CT scan: Acute fracture through the right pubic bone with extensive hemorrhage and soft tissue findings described in greater detail above. This finding was not apparent on the prior CT 02/02/2018. Pubic fracture possibly Chiropractic induced VS Pathologic fracture Physical Therapy Pain management Acetaminophen 650mg for mild pain Percocet for Sever pain as per ortho recommendation, Pt not candidate for surgery, will monitor for H/H and pain management Pt will be discharged tomorrow and should be bed rest for at least 2 weeks. F/U xray report Vaginal discharge + WBC and yeast Fluconazole 150mg po Once F/U Urine culture DVT prophylaxis SCD prn
[2018-02-26] MEDS ORDERED: Fluconazole 150 MG TAB PO ONE ×2 (16:45→18:07)
[2018-02-26] MEDS ORDERED: Oxycodone/Acetaminophen 5/325 mg Tab PO PRN (17:25)
--- NOTE | 2018-02-26 17:53 | CP.PCM.CON ---
History of Present Illness - History of Present Illness History of Present Illness: Orthopedic consult: Dr. Gong Patient is a 57 y/o female who presents to [facility] ER with c/o R groin pain. CT was performed revealing R pubic bone fracture. The patient denies any recent falls but admits to aggressive chiropractic manipulation 12 days ago resulting in mild right groin pain. The pain was bearable until last night when it progressively worsened making her unable to bear any weight. The pain is sharp, severe and wo rsened with WB activities. It is alleviated with rest. It is associated with mild swelling which began yesterday. She admits to h/o vaginal CA treated with chemo and radiation and is now in remittance following negative PET scan earlier this month. 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 She currently denies CP/SOB/N/V/D/fever/melena/dys uria. Review of Systems - Review of Systems All systems: reviewed and no additional remarkable complaints except Review of Systems: as per HPI Past Patient History - Past Medical History & Family History Past Medical History?: Yes - Past Social History Smoking Status: Heavy Smoker > 10 Cigarettes Daily Alcohol: Occasional Drugs: Denies - CARDIAC Hx Cardiac Disorders: No - PULMONARY Hx Respiratory Disorders: No - NEUROLOGICAL Hx Neurological Disorder: No - HEENT Hx HEENT Problems: No - RENAL Hx Chronic Kidney Disease: No - ENDOCRINE/METABOLIC Hx Endocrine Disorders: No - HEMATOLOGICAL/ONCOLOGICAL Hx Blood Disorders: Yes Hx Cancer: Yes - INTEGUMENTARY Hx Dermatological Problems: No - MUSCULOSKELETAL/RHEUMATOLOGICAL Hx Falls: No - GASTROINTESTINAL Hx Diarrhea: Yes (chemo) - GENITOURINARY/GYNECOLOGICAL Hx Genitourinary Disorders: Yes Other/Comment: Vaginal Cancer - PSYCHIATRIC Hx Psychophysiologic Disorder: No Hx Substance Use: Yes (40 Years ago) - SURGICAL HISTORY Hx Appendectomy: Yes - ANESTHESIA Hx Anesthesia: Yes Hx Anesthesia Reactions: No Hx Malignant Hyperthermia: No Meds Allergies/Adverse Reactions: Allergies Allergy/AdvReac Type Severity Reaction Status Date / Time No Known Allergies Allergy Verified 02/02/18 19:13 - Medications Medications: Current Medications Acetaminophen (Tylenol 325mg Tab) 650 mg PO Q4 PRN PRN Reason: Pain, Mild (1-3) Oxycodone/Acetaminophen (Percocet 5/325 Mg Tab) 1 tab PO Q6 PRN PRN Reason: Pain, severe (8-10) Stop: 03/01/18 17:26 Physical Exam - Constitutional Appears: Well, No Acute Distress - Head Exam Head Exam: ATRAUMATIC, NORMOCEPHALIC - Eye Exam Eye Exam: EOMI, Normal appearance, PERRL - ENT Exam ENT Exam: Mucous Membranes Moist - Respiratory Exam Respiratory Exam: NORMAL BREATHING PATTERN - Cardiovascular Exam Cardiovascular Exam: +S1, +S2 - GI/Abdominal Exam GI & Abdominal Exam: Soft. absent: Tenderness - Extremities Exam Additional comments: RLE - Neurological Exam Neurological exam: Alert, Oriented x3 Results - Vital Signs Recent Vital Signs: Last Vital Signs Temp 97.6 F 02/26/18 16:03 Pulse 75 02/26/18 16:27 Resp 18 02/26/18 16:03 BP 125/64 02/26/18 16:03 Pulse Ox 98 02/26/18 16:04 - Labs Result Diagrams: 02/26/18 13:10 02/26/18 13:10 Labs: Laboratory Results - last 24 hr 02/26/18 02/26/18 02/26/18 13:10 13:10 13:10 WBC 11.1 H RBC 3.58 L Hgb 11.9 L Hct 36.7 MCV 102.6 H D MCH 33.2 H MCHC 32.3 L RDW 13.7 Plt Count 275 MPV 8.3 Neut % (Auto) 84.8 H Lymph % (Auto) 5.3 L Thomas % (Auto) 7.7 Eos % (Auto) 1.9 Baso % (Auto) 0.3 Neut # (Auto) 9.4 H Lymph # (Auto) 0.6 L Thomas # (Auto) 0.9 H Eos # (Auto) 0.2 Baso # (Auto) 0.0 Neutrophils % (Manual) 77 H Lymphocytes % (Manual) 7 L Monocytes % (Manual) 11 H Eosinophils % (Manual) 5 Platelet Estimate Normal Hypochromasia (manual) Slight Macrocytosis (manual) Slight PT INR APTT Sodium 137 Potassium 3.7 Chloride 105 Carbon Dioxide 26 Anion Gap 10 BUN 23 H Creatinine 0.8 Est GFR ( Amer) > 60 Est GFR (Non-Af Amer) > 60 Random Glucose 104 Calcium 8.7 Total Bilirubin 0.4 AST 21 ALT 24 Alkaline Phosphatase 64 Total Protein 6.8 Albumin 3.7 Globulin 3.1 Albumin/Globulin Ratio 1.2 Urine Color Yellow Urine Clarity Slighty-cloudy Urine pH 5.0 Ur Specific [place] 1.025 Urine Protein Negative Urine Glucose (UA) Neg Urine Ketones Negative Urine Blood Negative Urine Nitrate Negative Urine Bilirubin Negative Urine Urobilinogen 0.2-1.0 Ur Leukocyte Esterase Mod Urine RBC (Auto) 5 H Urine Microscopic WBC 88 H Ur Squamous Epith Cells 1 Urine Bacteria Rare Hyaline Casts 0-2 Urine Yeast (Budding) Few H Blood Type Antibody Screen BBK History Checked 02/26/18 02/26/18 14:42 14:42 WBC RBC Hgb Hct MCV MCH MCHC RDW Plt Count MPV Neut % (Auto) Lymph % (Auto) Thomas % (Auto) Eos % (Auto) Baso % (Auto) Neut # (Auto) Lymph # (Auto) Thomas # (Auto) Eos # (Auto) Baso # (Auto) Neutrophils % (Manual) Lymphocytes % (Manual) Monocytes % (Manual) Eosinophils % (Manual) Platelet Estimate Hypochromasia (manual) Macrocytosis (manual) PT 11.7 INR 1.0 APTT 28.6 Sodium Potassium Chloride Carbon Dioxide Anion Gap BUN Creatinine Est GFR ( Amer) Est GFR (Non-Af Amer) Random Glucose Calcium Total Bilirubin AST ALT Alkaline Phosphatase Total Protein Albumin Globulin Albumin/Globulin Ratio Urine Color Urine Clarity Urine pH Ur Specific [place] Urine Protein Urine Glucose (UA) Urine Ketones Urine Blood Urine Nitrate Urine Bilirubin Urine Urobilinogen Ur Leukocyte Esterase Urine RBC (Auto) Urine Microscopic WBC Ur Squamous Epith Cells Urine Bacteria Hyaline Casts Urine Yeast (Budding) Blood Type A POSITIVE Antibody Screen Negative BBK History Checked Patient has bt - Impressions Impression: Accession No. : [id number] Patient Name / ID : JOSE FRY / [id number] Exam Date : 02/26/2018 13:08:56 ( Approved ) Study Comment : Sex / Age : F / 57Y Creator : Paras Garcia MD Dictator : Paras Garcia MD Pivot End Polisher : Employment Security Officer : Paras Garcia MD Approver2 : Report Date : 02/26/2018 14:15:36 My Comment : * Date of service: 02/26/2018 PROCEDURE: CT Abdomen and Pelvis without intravenous contrast HISTORY: right suprapubic swelling COMPARISON: 02/02/2018. CT abdomen and pelvis. Summary of findings on the comparison examination: Moderate to severe right hydronephrosis and hydro up to the distal ureter. Heterogeneous enhancing mass lesion posterior to the bladder and anterior to the rectum. TECHNIQUE: Unenhanced. Neither IV nor oral contrast administered Radiation dose: Total exam DLP = 181.34 mGy-cm. This CT exam was performed using one or more of the following dose reduction techniques: Automated exposure control, adjustment of the mA and/or kV according to patient size, and/or use of iterative reconstruction technique. FINDINGS: LOWER THORAX: Unremarkable. LIVER: Unremarkable. No gross lesion or ductal dilatation. GALLBLADDER AND BILE DUCTS: Unremarkable. PANCREAS: Unremarkable. No gross lesion or ductal dilatation. SPLEEN: Unremarkable. ADRENALS: Unremarkable. No mass. KIDNEYS AND URETERS: Resolution of previously identified right hydroureteronephrosis. Unremarkable left kidney in ureter. Unremarkable. No hydronephrosis. No solid mass. VASCULATURE: Unremarkable. No aortic aneurysm. No atherosclerotic calcification or mural plaque present. BOWEL: Unremarkable. No obstruction. No gross mural thickening. APPENDIX: Unremarkable. Normal appendix. PERITONEUM: Stable mass in the cul-de-sac interposed between the urinary bladder in the rectum. The mass continues to contain air suggesting fistulous communication with an adjacent structure. LYMPH NODES: Unremarkable. No enlarged lymph nodes. BLADDER: Unremarkable. REPRODUCTIVE: Stable right adnexal cyst 2.4 x 2.6 cm. BONES: No acute fracture. OTHER FINDINGS: Edematous changes extending from the skin surface to the peritoneal reflection right inguinal and suprapubic region. There is an ill-defined mass likely accounting for findings on physical examination just to the right of the midline measuring 2.4 x 5.7 cm. Adjacent skin and subcutaneous edematous change also represent new findings. This appears to be secondary to a fracture of the right pubis and adjacent edema, hemorrhage within external obturator and pectineus muscles. The fracture is identified on axial series 3/140-154 IMPRESSION: Acute fracture through the right pubic bone with extensive hemorrhage and soft tissue findings described in greater detail above. This finding was not apparent on the prior CT 02/02/2018. Additional benign and incidental findings are stable. Communication of results: I discussed the findings directly with the physician warehouse administrative assistant (Katy Gonzales) at the time of this interpretation 14:14. Assessment & Plan (1) Pubic bone fracture Assessment and Plan: R pubic bone fx -R hip/pelvis plain films confirm R pubic bone fx -Dr. Gong recommends conservative management with bedrest, WBAT, and pain control -no acute orthopedic intervention at this time -recommend f/u with oncologist to r/o pathologic fx -orthopedically stable for discharge -above d/w Dr. Gong in agreement Status: Acute
--- NOTE | 2018-02-26 18:33 | RAD ---
Date of service: 02/26/2018 PROCEDURE: Pelvis and right hip HISTORY: HIP FRACTURE RIGHT HIP COMPARISON: February 26, 2018 CT abdomen and pelvis. TECHNIQUE: Standard protocol for this study/examination. FINDINGS: Confirmation of fracture identified through the pubis. Edward remarked Mild degenerative changes both hips. IMPRESSION: Medial pubic fracture on the right. It both with respect to the osseous and adjacent soft tissue components on the CT performed earlier today
--- NOTE | 2018-02-26 18:35 | RAD ---
Date of service: 02/26/2018 HISTORY: ROUTINE COMPARISON: 09/07/2017. FINDINGS: LUNGS: No active pulmonary disease. PLEURA: No significant pleural effusion identified, no pneumothorax apparent. CARDIOVASCULAR: No atherosclerotic calcification present Normal. OSSEOUS STRUCTURES: No significant abnormalities. VISUALIZED UPPER ABDOMEN: Normal. OTHER FINDINGS: Removal of support apparatus since the prior study: Venous access catheter. IMPRESSION: No active disease. No significant interval change compared to the prior examination(s).
[2018-02-27 04:35] VITALS: O2SAT 98
[2018-02-27 06:59] LABS: HEMOGLOBIN 11.6 g/dL (12.0-16.0); MEAN CELL VOLUME 100.5 fl (81.0-99.0); MEAN CORPUSCULAR HEMOGLOBIN 32.5 pg (27.0-31.0); MEAN CORPUSCULAR HGB CONC 32.4 g/dL (33.0-37.0); RBC 3.56 Mil/uL (3.80-5.20); RED CELL DISTRIBUTION WIDTH 13.8 % (11.5-14.5); WHITE BLOOD COUNT 9.4 K/uL (4.8-10.8)
[2018-02-27 08:07] VITALS: BP 144/74; RESP 18
--- NOTE | 2018-02-27 09:17 | CP.PCM.PN ---
Subjective - Date & Time of Evaluation Date of Evaluation: 02/27/18 Time of Evaluation: 09:13 - Subjective Subjective: Patient complains of pain in pubic area. Denies numbness/tingling Review of Systems - Musculoskeletal Musculoskeletal: As Par HPI Objective - Vital Signs/Intake and Output Vital Signs (last 24 hours): Temp Pulse Resp BP Pulse Ox 98.4 F 73 18 144/74 98 02/27/18 08:07 02/27/18 08:07 02/27/18 08:07 02/27/18 08:07 02/27/18 08:07 - Medications Medications: Current Medications Acetaminophen (Tylenol 325mg Tab) 650 mg PO Q4 PRN PRN Reason: Pain, Mild (1-3) Oxycodone/Acetaminophen (Percocet 5/325 Mg Tab) 1 tab PO Q6 PRN PRN Reason: Pain, severe (8-10) Stop: 03/01/18 17:26 Last Admin: 02/26/18 22:32 Dose: 1 tab - Labs Labs: 02/27/18 06:25 02/26/18 13:10 PT 11.7 Seconds (9.8-13.1) 02/26/18 14:42 INR 1.0 02/26/18 14:42 APTT 28.6 Seconds (25.6-37.1) 02/26/18 14:42 - Extremities Exam Additional comments: calves soft NT neg homans +ROM ankle/toes, sensation intact Assessment and Plan (1) Fracture of right pubis Assessment & Plan: per Dr. Gong, limit ambulation 30WB on R, bed rest outside of transfers/bathroom privileges PT to assess for ambulation safety non operative fractures, possibly pathologic fx to right pubic bone f/u 10d -2 weeks as outpatient to monitor fracture, orthopedically stable for discharge VTE proph d/w Dr. gong, agrees with above Status: Acute (2) Fracture of sacrum Status: Acute (3) Closed fracture of transverse process of lumbar vertebra Status: Acute
[2018-02-27] MEDS ORDERED: Oxycodone/Acetaminophen 5/325 mg Tab PO STA (09:33)
[2018-02-27] MEDS ORDERED: Oxycodone/Acetaminophen 5/325 mg Tab PO PRN (09:37)
[2018-02-27 09:44] VITALS: TEMP 98.1
--- NOTE | 2018-02-27 11:04 | CP.PCM.DIS ---
Provider - Provider Date of Admission: 02/26/18 16:02 Attending physician: Junito Xiao MD Time Spent in preparation of Discharge (in minutes): 20 Diagnosis - Discharge Diagnosis (1) Fracture of right pubis Status: Acute Hospital Course - Lab Results Lab Results: Most Recent Lab Values WBC 9.4 K/uL (4.8-10.8) 02/27/18 06:25 RBC 3.56 Mil/uL (3.80-5.20) L 02/27/18 06:25 Hgb 11.6 g/dL (12.0-16.0) L 02/27/18 06:25 Hct 35.8 % (34.0-47.0) 02/27/18 06:25 MCV 100.5 fl (81.0-99.0) H D 02/27/18 06:25 MCH 32.5 pg (27.0-31.0) H 02/27/18 06:25 MCHC 32.4 g/dL (33.0-37.0) L 02/27/18 06:25 RDW 13.8 % (11.5-14.5) 02/27/18 06:25 Plt Count 259 K/uL (130-400) 02/27/18 06:25 MPV 8.3 fl (7.2-11.7) 02/26/18 13:10 Neut % (Auto) 84.8 % (50.0-75.0) H 02/26/18 13:10 Lymph % (Auto) 5.3 % (20.0-40.0) L 02/26/18 13:10 Borden % (Auto) 7.7 % (0.0-10.0) 02/26/18 13:10 Eos % (Auto) 1.9 % (0.0-4.0) 02/26/18 13:10 Baso % (Auto) 0.3 % (0.0-2.0) 02/26/18 13:10 Neut # (Auto) 9.4 K/uL (1.8-7.0) H 02/26/18 13:10 Lymph # (Auto) 0.6 K/uL (1.0-4.3) L 02/26/18 13:10 Borden # (Auto) 0.9 K/uL (0.0-0.8) H 02/26/18 13:10 Eos # (Auto) 0.2 K/uL (0.0-0.7) 02/26/18 13:10 Baso # (Auto) 0.0 K/uL (0.0-0.2) 02/26/18 13:10 Neutrophils % (Manual) 77 % (42-75) H 02/26/18 13:10 Lymphocytes % (Manual) 7 % (20-50) L 02/26/18 13:10 Monocytes % (Manual) 11 % (0-10) H 02/26/18 13:10 Eosinophils % (Manual) 5 % (0-7) 02/26/18 13:10 Platelet Estimate Normal (NORMAL) 02/26/18 13:10 Hypochromasia (manual) Slight 02/26/18 13:10 Macrocytosis (manual) Slight 02/26/18 13:10 PT 11.7 Seconds (9.8-13.1) 02/26/18 14:42 INR 1.0 02/26/18 14:42 APTT 28.6 Seconds (25.6-37.1) 02/26/18 14:42 Sodium 137 mmol/l (132-148) 02/26/18 13:10 Potassium 3.7 MMOL/L (3.6-5.0) 02/26/18 13:10 Chloride 105 mmol/L (98-107) 02/26/18 13:10 Carbon Dioxide 26 mmol/L (22-30) 02/26/18 13:10 Anion Gap 10 (10-20) 02/26/18 13:10 BUN 23 mg/dl (7-17) H 02/26/18 13:10 Creatinine 0.8 mg/dl (0.7-1.2) 02/26/18 13:10 Est GFR ( Amer) > 60 02/26/18 13:10 Est GFR (Non-Af Amer) > 60 02/26/18 13:10 Random Glucose 104 mg/dL (65-105) 02/26/18 13:10 Calcium 8.7 mg/dL (8.4-10.2) 02/26/18 13:10 Total Bilirubin 0.4 mg/dl (0.2-1.3) 02/26/18 13:10 AST 21 U/L (14-36) 02/26/18 13:10 ALT 24 U/L (9-52) 02/26/18 13:10 Alkaline Phosphatase 64 U/L (38-126) 02/26/18 13:10 Total Protein 6.8 G/DL (6.3-8.2) 02/26/18 13:10 Albumin 3.7 g/dL (3.5-5.0) 02/26/18 13:10 Globulin 3.1 gm/dL (2.2-3.9) 02/26/18 13:10 Albumin/Globulin Ratio 1.2 (1.0-2.1) 02/26/18 13:10 Urine Color Yellow (YELLOW) 02/26/18 13:10 Urine Clarity Slighty-cloudy (Clear) 02/26/18 13:10 Urine pH 5.0 (5.0-8.0) 02/26/18 13:10 Ur Specific Lehr 1.025 (1.003-1.030) 02/26/18 13:10 Urine Protein Negative mg/dL (NEGATIVE) 02/26/18 13:10 Urine Glucose (UA) Neg mg/dL (Normal) 02/26/18 13:10 Urine Ketones Negative mg/dL (NEGATIVE) 02/26/18 13:10 Urine Blood Negative (NEGATIVE) 02/26/18 13:10 Urine Nitrate Negative (NEGATIVE) 02/26/18 13:10 Urine Bilirubin Negative (NEGATIVE) 02/26/18 13:10 Urine Urobilinogen 0.2-1.0 mg/dL (0.2-1.0) 02/26/18 13:10 Ur Leukocyte Esterase Mod [place]/uL (Negative) 02/26/18 13:10 Urine RBC (Auto) 5 /hpf (0-3) H 02/26/18 13:10 Urine Microscopic WBC 88 /hpf (0-5) H 02/26/18 13:10 Ur Squamous Epith Cells 1 /hpf (0-5) 02/26/18 13:10 Urine Bacteria Rare (<OCC) 02/26/18 13:10 Hyaline Casts 0-2 /hpf (0-2) 02/26/18 13:10 Urine Yeast (Budding) Few /hpf (NEGATIVE) H 02/26/18 13:10 Blood Type A POSITIVE 02/26/18 14:42 Antibody Screen Negative 02/26/18 14:42 BBK History Checked Patient has bt 02/26/18 14:42 - Hospital Course Hospital Course: Pt is a 57 yo female with 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 Admitted for observation due to hip fracture. Pt was seen and evaluated by Ortho, and state pt is not good candidate for surgery at moment, Pt should be bed rest, and follow up with Dr. Isaac in 1-2 weeks. Pt will be discharged with Barry as DVT prophylaxis. Physical therapy seen patient, and recommend pt to be discharged with Rolling walker script. Pt should follow up with Dr. Villanueva in 1-2 days Pt should follow up with in 1-2 weeks Dc with Barry for DVT prophylaxis, pt received a coupon for 30 days. Discharge Exam - Head Exam Head Exam: ATRAUMATIC, NORMOCEPHALIC - Eye Exam Eye Exam: EOMI, Normal appearance, PERRL Pupil Exam: NORMAL ACCOMODATION, PERRL - Respiratory Exam Respiratory Exam: Clear to PA & Lateral, UNREMARKABLE - Cardiovascular Exam Cardiovascular Exam: REGULAR RHYTHM, +S1, +S2 - GI/Abdominal Exam GI & Abdominal Exam: Normal Bowel Sounds, Unremarkable - Extremities Exam Additional comments: Decrease ROM due to fracture, Pulse, sensation intact - Neurological Exam Neurological exam: Alert, Oriented x3 - Psychiatric Exam Psychiatric exam: Normal Affect, Normal Mood - Skin Skin Exam: Dry, Intact, Normal Color, Warm Discharge Plan - Discharge Medications Prescriptions: Apixaban [Eliquis] 2.5 mg PO BID #60 tablet - Follow Up Plan Condition: STABLE Disposition: HOME/ ROUTINE Instructions: Pelvic Fracture (DC) Additional Instructions: follow up with in 2 weeks Referrals: Maximiliano Gong III, MD [Staff Provider] -
[2018-02-27 11:59] VITALS: PULSE 76
--- NOTE | 2018-02-27 13:59 | CARD ---
APPROVED REPORT Date of service: 02/26/2018 EKG Measurement Heart [id number] <Conclusion> Normal sinus rhythm Possible left atrial enlargement Abnormal ECG
== END 2018-02-27 12:26 | disposition home or self-care (01) ==
LOC: H.ER 10:54 → H.ERHOLD 16:02 → H.TEL 18:45
PROVIDERS: ADMIT Hospitalist; ATTEND Hospitalist
DX: S32.501A Unspecified fracture of right pubis, initial encounter for closed fracture (principal); Z92.3 Personal history of irradiation; Z92.21 Personal history of antineoplastic chemotherapy; Z85.44 Personal history of malignant neoplasm of other female genital organs; N89.8 Other specified noninflammatory disorders of vagina; F17.210 Nicotine dependence, cigarettes, uncomplicated; Z66 Do not resuscitate; S32.10XA Unspecified fracture of sacrum, initial encounter for closed fracture; S32.009A Unspecified fracture of unspecified lumbar vertebra, initial encounter for closed fracture; X58.XXXA Exposure to other specified factors, initial encounter; Z79.01 Long term (current) use of anticoagulants
CPT/HCPCS: 36415; 71045; 73502; 74176; 80053; 81003; 85025; 85027; 85610; 85730; 86850; 86900; 87086; 93005; 96374; 96375; 97162; 99285; G0378; G8978; G8979; J1885; J2270; J2405

== ENCOUNTER 2018-05-26 11:06 | Emergency (ER) | payer MEDICAID, SELFPAY ==
[2018-05-26 11:18] VITALS: BMI 19.5
[2018-05-26 11:19] VITALS: TEMP 98
--- NOTE | 2018-05-26 11:51 | ED PDOC ---
HPI:Nausea, Vomiting, Diarrhea Time Seen by Provider: 05/26/18 11:30 Chief Complaint (Nursing): GI Problem Chief Complaint (Provider): rectal discomfort and diarrhea History Per: Patient History/Exam Limitations: no limitations Additional Complaint(s): 57 y/o F with hx of vulvar Ca treated with RT and chemo as well as brachytherapy and fractured pelvis in 01/2018 who presents with diarrhea and blood in stool for the past 3 weeks. Has had episodes of bloody stool to be expected after RT but over past 3 weeks, has diarrhea every morning and discomfort when sitting. + lower abdominal pain and distention. Denies dizziness, palpitations, SOB, N/V, weight loss. Placed her finger in rectum yesterday and felt "lumps". Past Medical History Reviewed: Historical Data, Nursing Documentation, Vital Signs Vital Signs: Last Vital Signs Temp 98 F 05/26/18 11:18 Pulse 79 05/26/18 11:18 Resp 17 05/26/18 11:18 BP 127/70 05/26/18 11:18 Pulse Ox 98 05/26/18 11:18 - Medical History PMH: Malignancy (vaginal) Denies: HIV, Chronic Kidney Disease - Surgical History Surgical History: Appendectomy Other surgeries: hysterectomy - Family History Family History: States: Unknown Family Hx - Immunization History Hx Tetanus Toxoid Vaccination: Yes (2 years ago) - Home Medications Home Medications: Ambulatory Orders Medication Instructions Recorded traMADol [Ultram] 50 mg PO Q6 PRN 02/26/18 Apixaban [Eliquis] 2.5 mg PO BID #60 tablet 02/27/18 - Allergies Allergies/Adverse Reactions: Allergies Allergy/AdvReac Type Severity Reaction Status Date / Time No Known Allergies Allergy Verified 05/26/18 11:41 Review of Systems Constitutional: Negative for: Fever, Chills Gastrointestinal: Positive for: Abdominal Pain, Diarrhea, Hematochezia, Rectal Pain. Negative for: Nausea, Vomiting Genitourinary Female: Negative for: Dysuria, Frequency Neurological: Negative for: Dizziness Physical Exam - Reviewed Nursing Documentation Reviewed: Yes Vital Signs Reviewed: Yes - Physical Exam Appears: Positive for: Non-toxic Skin: Positive for: Normal Color Cardiovascular/Chest: Positive for: Regular Rate, Rhythm Respiratory: Positive for: Normal Breath Sounds Gastrointestinal/Abdominal: Positive for: Normal Exam, Tenderness (mild pelvic tenderness) Rectal: Positive for: Rectal Tone Is: (normal), Stool Is Heme:, Other (exam performed in the presence of RN Laura. Light blood on glove with minimal stool). Negative for: Hemorrhoids, Mass Neurologic/Psych: Positive for: Alert, Oriented - Laboratory Results Result Diagrams: 05/26/18 12:50 05/26/18 12:50 - ECG O2 Sat by Pulse Oximetry: 98 Medical Decision Making Medical Decision Making: CBC, CMP, Type and screen fecal occult blood test CT abd/pelvis w/ PO and IV contrast IV saline lock CT abd/pelvis w/ PO and IV contrast: FINDINGS: LOWER THORAX: Unremarkable. LIVER: There is a tiny lucency seen at the medial left lobe liver too small to charac terize measuring only 7 mm greatest dimension with the liver otherwise mildly enlarged. No intrahepatic biliary dilatation identified. GALLBLADDER AND BILE DUCTS: Unremarkable. PANCREAS: There is an 8.5 mm lucency identified at the distal body of the pancreas near the junction with the tail. This is poorly characterized due to small size as well. This is not clearly seen previously but the prior study was without contrast limiting its sensitivity. SPLEEN: Unremarkable. ADRENALS: Unremarkable. No mass. KIDNEYS AND URETERS: Unremarkable. No hydronephrosis. No solid mass. VASCULATURE: Nonaneurysmal abdominal aortic calcific atherosclerotic changes are identified. BOWEL: No bowel obstruction identified. The stomach is mildly distended with retained fluid and fluid. There is prominent mural thickening identified at the mid through distal sigmoid colon as well as the rectum. Given prior history of vulva cancer, this could reflect post radiation therapy related colitis though infectious or other inflammatory colitis is not excluded and further clinical correlation is advised. Neoplasm is not favored. Clinically correlate further. APPENDIX: Normal appendix. PERITONEUM: Unremarkable. No free fluid. No free air. LYMPH NODES: No significant lymphadenopathy appreciate including bilateral pelvic sidewalls. BLADDER: Urinary bladder is stable in appearance with borderline mural thickening which may also reflect post radiation change cystitis. Clinically correlate further. REPRODUCTIVE: Unremarkable. BONES: Prior posttraumatic soft tissue changes from fracture of the medial side of the pubic symphysis appears to have nearly completely resolved with trace residual edema seen anterior to the fracture site. OTHER FINDINGS: None. IMPRESSION: 1. Findings most compatible with probable post radiation related segmental colitis affecting mid to distal sigmoid colon and rectum though other etiologies are possible as discussed above including infectious or other inflammatory causes. Neoplasm unlikely. Clinically correlate further. 2. No cystitis, likely post radiation related though other etiologies are possible. Clinically correlate further. 3. Prior hysterectomy suggested once again. 4. Diminishing right adnexal cyst 2.1 x 1.7 cm. 5. Hepatomegaly with small lucency at the medial left lobe too small to characterize. 6. Limited fluid and trace gas likely present in deep vaginal vault. 14:37: CT scan and lab results d/w patient and patient will f/u with her oncologist in [place]. Referral to GI given and patient advised to take Tylenol or Ibuprofen for pain. Disposition - Clinical Impression Clinical Impression: Rectal pain, Hematochezia, Radiation colitis - Patient ED Disposition Is Patient to be Admitted: No Counseled Patient/Family Regarding: Studies Performed, Diagnosis, Need For Followup - Disposition Referrals: [facility] [Outside] Germain Yates MD [Staff Provider] - Disposition: Routine/Home Disposition Time: 14:39 Condition: STABLE Additional Instructions: Follow up with your oncologist or GI doctor within the next 1 - 2 weeks. Return to ER if you develop shortness of breath, dizziness or increased rectal bleeding. Take Tylenol for pain. Instructions: Bloody Stools, Adult (DC), Colitis (DC) Forms: [employer] ([place]) Print Language: INDONESIAN
[2018-05-26 13:01] LABS: BASO # 0.1 K/uL (0.0-0.2); BASO % 1.1 % (0.0-2.0); EOS # 0.1 K/uL (0.0-0.7); HEMOGLOBIN 11.9 g/dL (12.0-16.0); LYMPH # 0.9 K/uL (1.0-4.3); LYMPH % 12.2 % (20.0-40.0); MEAN CELL VOLUME 95.9 fl (81.0-99.0); MEAN CORPUSCULAR HEMOGLOBIN 31.9 pg (27.0-31.0); MEAN CORPUSCULAR HGB CONC 33.2 g/dL (33.0-37.0); MEAN PLATELET VOLUME 8.5 fl (7.2-11.7); MONO # 0.5 K/uL (0.0-0.8); MONO % 6.8 % (0.0-10.0); NEUT # 5.9 K/uL (1.8-7.0); NEUT % 77.9 % (50.0-75.0); RBC 3.73 Mil/uL (3.80-5.20); RED CELL DISTRIBUTION WIDTH 13.6 % (11.5-14.5); WHITE BLOOD COUNT 7.5 K/uL (4.8-10.8)
[2018-05-26] MEDS: Iohexol 240 (50 ml) PO STA (13:02)
[2018-05-26 13:20] LABS: ALB/GLOB RATIO 1.3 (1.0-2.1); ALT/SGPT 19 U/L (9-52); AST/SGOT 26 U/L (14-36); BLOOD UREA NITROGEN 21 mg/dl (7-17); CALCIUM 8.9 mg/dL (8.4-10.2); GFR NON-AFRICAN AMERICAN > 60
[2018-05-26] MEDS ORDERED: Iohexol 300 100 ML IJ ONE (14:47)
[2018-05-26] MEDS ORDERED: Sodium Chloride 0.9% 50 ML IV ONE (14:47)
--- NOTE | 2018-05-26 16:23 | CT ---
Date of service: 05/26/2018 PROCEDURE: CT Abdomen and Pelvis with contrast HISTORY: hx of vulvar Ca RT worsening diarrhea/blood stool COMPARISON: Noncontrast abdomen pelvis CT 02/26/2018. TECHNIQUE: Following the intravenous administration of iodinated contrast material, a CT examination of the abdomen and pelvis was performed from the domes of the diaphragms to the symphysis pubis with reformatted datasets provided in axial, sagittal and coronal planes. Oral contrast was not administered as per referring physician request. Contrast dose: Omnipaque 300, 95 cc Radiation dose: Total exam DLP = 204.01 mGy-cm. This CT exam was performed using one or more of the following dose reduction techniques: Automated exposure control, adjustment of the mA and/or kV according to patient size, and/or use of iterative reconstruction technique. FINDINGS: LOWER THORAX: Unremarkable. LIVER: There is a tiny lucency seen at the medial left lobe liver too small to characterize measuring only 7 mm greatest dimension with the liver otherwise mildly enlarged. No intrahepatic biliary dilatation identified. GALLBLADDER AND BILE DUCTS: Unremarkable. PANCREAS: There is an 8.5 mm lucency identified at the distal body of the pancreas near the junction with the tail. This is poorly characterized due to small size as well. This is not clearly seen previously but the prior study was without contrast limiting its sensitivity. SPLEEN: Unremarkable. ADRENALS: Unremarkable. No mass. KIDNEYS AND URETERS: Unremarkable. No hydronephrosis. No solid mass. VASCULATURE: Nonaneurysmal abdominal aortic calcific atherosclerotic changes are identified. BOWEL: No bowel obstruction identified. The stomach is mildly distended with retained fluid and fluid. There is prominent mural thickening identified at the mid through distal sigmoid colon as well as the rectum. Given prior history of vulva cancer, this could reflect post radiation therapy related colitis though infectious or other inflammatory colitis is not excluded and further clinical correlation is advised. Neoplasm is not favored. Clinically correlate further. APPENDIX: Normal appendix. PERITONEUM: Unremarkable. No free fluid. No free air. LYMPH NODES: No significant lymphadenopathy appreciate including bilateral pelvic sidewalls. BLADDER: Urinary bladder is stable in appearance with borderline mural thickening which may also reflect post radiation change cystitis. Clinically correlate further. REPRODUCTIVE: Unremarkable. BONES: Prior posttraumatic soft tissue changes from fracture of the medial side of the pubic symphysis appears to have nearly completely resolved with trace residual edema seen anterior to the fracture site. OTHER FINDINGS: None. IMPRESSION: 1. Findings most compatible with probable post radiation related segmental colitis affecting mid to distal sigmoid colon and rectum though other etiologies are possible as discussed above including infectious or other inflammatory causes. Neoplasm unlikely. Clinically correlate further. 2. No cystitis, likely post radiation related though other etiologies are possible. Clinically correlate further. 3. Prior hysterectomy suggested once again. 4. Diminishing right adnexal cyst 2.1 x 1.7 cm. 5. Hepatomegaly with small lucency at the medial left lobe too small to characterize. 6. Limited fluid and trace gas likely present in deep vaginal vault.
[2018-05-26 16:56] VITALS: BP 139/71; PULSE 68; RESP 18
[2018-05-26 21:37] VITALS: O2SAT 98
== END 2018-05-26 16:42 | disposition home or self-care (01) ==
LOC: H.ER 11:06
DX: K62.89 Other specified diseases of anus and rectum (principal); K92.1 Melena; K52.0 Gastroenteritis and colitis due to radiation; Z79.01 Long term (current) use of anticoagulants; Z85.44 Personal history of malignant neoplasm of other female genital organs
CPT/HCPCS: 74177; 80053; 85025; 86850; 86900; 99284; G0328; Q9966; Q9967